=== PATIENT | female | born 1980 | race Caucasian/White ===

== ENCOUNTER 2021-02-22 00:56 | Observation (INO) | payer OTHER, SELFPAY ==
[2021-02-21] VITALS (13 sets, daily range): BP systolic 118–144; BP diastolic 72–96; PULSE 96–97; RESP 20; TEMP 36.9; O2SAT 96–97; BMI 29.7
--- NOTE | 2021-02-21 22:46 | ECG_ITS ---
APPROVED REPORT Exam: Resting ECG HR:69 bpm ECG Measurements Heart Rate 69 AXES AZ 148 P 35 QRSd 74 QRS 33 QT 366 T 41 QTc 392 Conclusion Normal sinus rhythm Possible Left atrial enlargement Borderline ECG Electronically signed by : Ankit Davies MD 02/22/2021 17:55:58
--- NOTE | 2021-02-21 22:55 | PC.NURSE ---
PT TO UNIT AT THIS TIME. PT C/O HEAVINESS IN HER CHEST, HEADACHE THAT IS CURRENTLY RESOLVED AND HAS BEEN MILD AND INTERMITTENT. SHE IS 8 DAYS POST- FROM A . REPORTS NO HX OF ELEVATED BP OR COMPLICATIONS FROM PREVIOUS PREGNANCIES. PT DENIES VISUAL DISTURBANCE OR TENDERNESS OF HER ABDOMEN. NO DIZZINESS. REPORTS A HX OF ANXIETY AND DEPRESSION WITH PANIC ATTACKS. SHE DOES STATE THIS THIS FEELS DIFFERENT THAN A PANIC ATTACK . PT ORIENTED TO STAFF, UNIT AND PLAN OF CARE. UA AND UDS OBTAINED.
[2021-02-21 23:38] LABS: Microscopic, Urine URINE MICROSCOPIC (MICROSCOPIC)
[2021-02-21 23:42] LABS: Basophils % 0.4 % (0.1-2.0); Eosinophils # 0.2 K/mm3 (0.0-0.4); Eosinophils % 1.8 % (0.1-12.0); Hematocrit 37.9 % (37.0-47.0); Hemoglobin 12.5 g/dL (12.2-16.2); Lymphocytes # 1.4 K/mm3 (0.7-4.5); Lymphocytes % 15.6 % (10-50); Mean Corpuscular HGB Conc 33.1 g/dL (31.8-35.4); Mean Corpuscular Hemoglobin 30.3 pg (27.0-31.2); Mean Corpuscular Volume 91.7 fl (81-99); Mean Platelet Volume 7.6 fl (7.4-10.4); Monocytes # 0.5 K/mm3 (0.1-1.0); Monocytes % 5.3 % (1.7-9.3); Neutrophils # 6.9 K/mm3 (1.8-7.8); Neutrophils % 76.9 % (37.0-80.0); Platelet Count 293 K/mm3 (142-424); Red Blood Count 4.13 M/mm3 (4.20-5.40); Red Cell Distribution Width 15.4 % (11.5-17.5)
[2021-02-21 23:47] LABS: Appearance,Urine CLEAR (Clear); Bilirubin,Urine Negative (Negative); Blood, Urine TRACE-I (Negative); Color,Urine YELLOW (Yellow); Glucose,Urine (UA) Negative (Negative); Ketones,Urine Negative (Negative); Leukocyte Esterase,Urine TRACE (Negative); Nitrate,Urine Negative (Negative); Protein,Urine Negative (Negative); Specific Gravity, Urine <= 1.005 (1.005-1.030); Urobilinogen,Urine 0.2 EU/dl (0.2)
[2021-02-21 23:53] LABS: D-Dimer 2.05 ug/mL (0.0-0.5)
[2021-02-21 23:58] LABS: Barbiturates Screen,Urine Negative ng/ml (<200)
[2021-02-21 23:59] LABS: Amphetamine/Metha Screen,Urine Negative ng/ml (<1000); Benzodiazepines Screen,Urine Negative ng/ml (<200)
[2021-02-22] VITALS (11 sets, daily range): BP systolic 125–149; BP diastolic 72–100; PULSE 60–70; RESP 18; TEMP 36.7–36.9; O2SAT 98–99
[2021-02-22] LABS: Cannabinoid Screen,Urine Negative ng/ml (<50)
[2021-02-22 00:01] LABS: Cocaine Screen,Urine Negative ng/ml (<300); Methadone Screen,Urine Negative ng/ml (<300)
[2021-02-22 00:02] LABS: Opiate Screen,Urine Negative ng/ml (<300)
[2021-02-22 00:03] LABS: Phencyclidine Screen,Urine Negative ng/ml (<25)
[2021-02-22 00:07] LABS: Activated Partial Thrombo Time 22.9 seconds (22.8-30.6); Fibrinogen 348 mg/dL (229.9-363.5); INR 0.93 (0.9-1.1); Prothrombin Time 10.6 seconds (10.1-12.5)
[2021-02-22 00:17] LABS: Bacteria,Urine Trace /lpf; RBC,Urine Occasional #/hpf (0-3); Squamous Epithelial Cell,Urine Occasional #/hpf (0-5)
[2021-02-22 00:23] LABS: Alanine Aminotransferase 99 U/L (12-78); Anion Gap 9.8 mEq/L (5-15); Aspartate Amino Transferase 106 U/L (14-36); Blood Urea Nitrogen 14 mg/dl (7-17); Calcium 8.9 mg/dl (8.4-10.2); Carbon Dioxide 25 mmol/L (22.0-30.0); Chloride 106 mmol/L (98-107); Creatinine Clearance Estimated 135 mL/min (50-200); Estimated Glomerular Filt Rate 94 ml/min (>60); GFR (African American) 113 ML/MIN (>60); Glucose 108 mg/dl (74-100); Potassium 3.8 mmoL/L (3.5-5.1); Sodium 137 mmol/L (136-145)
--- NOTE | 2021-02-22 00:55 | PC.NURSE ---
PT TO ROOM 275 WITH BELONGINGS. PT ORIENTED TO ROOM. CALL LIGHT IN REACH. PREI-PADS PROVIDED FOR POST- BLEEDING. PT CONTINUES TO REPORT HEAVINESS IN HER CHEST AND INCREASED ANXIETY. DENIES ABDOMINAL TENDERNESS, VISUAL DISTURBANCES OR HEADACHE AT THIS TIME.
[2021-02-22 02:10] LABS: Coronavirus 19, PCR Not Detected (NotDetected); Influenza A, PCR Not Detected (NotDetected); Influenza B, PCR Not Detected (NotDetected)
--- NOTE | 2021-02-22 07:10 | XR_ITS ---
PROCEDURE INFORMATION: Exam: XR Chest Exam date and time: 02/22/2021 7:10 AM Age: 40 years old Clinical indication: Pain; Chest pressure; Patient HX: x 1 week; Additional info: Chest heaviness TECHNIQUE: Imaging protocol: XR of the chest. Views: 2 views. COMPARISON: ABDPELW/O CT ABD PELVIS W/O CONTRAST 09/25/2015 8:29 AM FINDINGS: Lungs: No focal airspace disease. Pleural spaces: Unremarkable. No pleural effusion. No pneumothorax. Heart/Mediastinum: Cardiomediastinal silhouette is within normal limits. Bones/joints: Unremarkable. IMPRESSION: No acute cardiopulmonary abnormality.
[2021-02-22 08:07] LABS: Basophils % 0.4 % (0.1-2.0); Eosinophils # 0.1 K/mm3 (0.0-0.4); Eosinophils % 1.4 % (0.1-12.0); Hematocrit 38.8 % (37.0-47.0); Hemoglobin 12.6 g/dL (12.2-16.2); Lymphocytes # 1.5 K/mm3 (0.7-4.5); Lymphocytes % 17.5 % (10-50); Mean Corpuscular HGB Conc 32.4 g/dL (31.8-35.4); Mean Corpuscular Hemoglobin 29.8 pg (27.0-31.2); Mean Platelet Volume 7.4 fl (7.4-10.4); Monocytes # 0.5 K/mm3 (0.1-1.0); Monocytes % 5.8 % (1.7-9.3); Neutrophils # 6.6 K/mm3 (1.8-7.8); Neutrophils % 74.9 % (37.0-80.0); Platelet Count 268 K/mm3 (142-424); Red Blood Count 4.22 M/mm3 (4.20-5.40); Red Cell Distribution Width 15.4 % (11.5-17.5); White Blood Count 8.8 K/mm3 (4.8-10.8)
[2021-02-22 08:12] LABS: Chloride 107 mmol/L (98-107); Potassium 3.9 mmoL/L (3.5-5.1); Sodium 140 mmol/L (136-145)
[2021-02-22 08:15] LABS: Alanine Aminotransferase 94 U/L (12-78); Albumin Level 3.6 g/dl (3.5-5.0); Albumin/Globulin Ratio 1.3 (1.1-1.8); Alkaline Phosphatase 100 U/L (38-126); Anion Gap 10.9 mEq/L (5-15); Aspartate Amino Transferase 85 U/L (14-36); Bilirubin,Total 0.3 mg/dl (0.2-1.3); Blood Urea Nitrogen 13 mg/dl (7-17); Calcium 8.8 mg/dl (8.4-10.2); Carbon Dioxide 26 mmol/L (22.0-30.0); Creatinine Clearance Estimated 135 mL/min (50-200); Estimated Glomerular Filt Rate 94 ml/min (>60); GFR (African American) 113 ML/MIN (>60); Globulin 2.8 g/dL (1.3-3.2); Glucose 95 mg/dl (74-100); Total Protein,Serum 6.4 g/dl (6.3-8.2)
--- NOTE | 2021-02-22 10:02 | PC.NURSE ---
at bs to see pt.
--- NOTE | 2021-02-22 10:03 | PC.NURSE ---
Release of Information sheet faxed to [facility] to obtain Records.
--- NOTE | 2021-02-22 10:25 | PC.NURSE ---
Yesenia from ' office notified of need for consultation.
--- NOTE | 2021-02-22 12:35 | PC.NURSE ---
called unit r/t consultation. States that he will order a CTA. Understanding verbalized.
--- NOTE | 2021-02-22 12:48 | CT_ITS ---
PROCEDURE INFORMATION: Exam: CTA Chest With Contrast Exam date and time: 02/22/2021 12:48 PM Age: 40 years old Clinical indication: Abnormal findings; Patient HX: 1 week post , chest pressure, elevated d dimer; Additional info: Chest pressure, post-, elev. D-dimer TECHNIQUE: Imaging protocol: Computed tomographic angiography of the chest with contrast. 3D rendering (Not supervised by radiologist): MIP and/or 3D reconstructed images were created by the technologist. Radiation optimization: All CT scans at this facility use at least one of these dose optimization techniques: automated exposure control; mA and/or kV adjustment per patient size (includes targeted exams where dose is matched to clinical indication); or iterative reconstruction. Contrast material: ISOVUE 370; Contrast volume: 70 ml; Contrast route: INTRAVENOUS (IV); COMPARISON: CR XR CHEST 2V 02/22/2021 7:14 AM FINDINGS: Pulmonary arteries: 2.5 mm thick axials provided as well as reconstructed MIPS. These images demonstrate a small subsegmental pulmonary embolus is seen in the right lower lobe posteromedially. See image 71 of series 5 and image 51 of the coronal series. Aorta: Unremarkable. No aortic aneurysm. No aortic dissection. Lungs: There is a calcified pulmonary nodule in the right lower lobe posterior. Pleural spaces: Unremarkable. No pneumothorax. No pleural effusion. Heart: No evidence of right heart strain. Lymph nodes: Calcified mediastinal lymph nodes noted. Bones/joints: Unremarkable. No acute fracture. Soft tissues: Unremarkable. IMPRESSION: A tiny subsegmental pulmonary embolus is seen in the right lower lobe Case discussed with Dr. Kenney over the phone at 1:40 p.m. [place] time
--- NOTE | 2021-02-22 13:13 | HMH.HP ---
*Admission Date: 02/22/21 *Chief complaint: chest tightness *History of present illness: 40 yo presented to [facility] ED with complaint of tightness in chest. She is 1 week from vaginal delivery at [facility]. She reports that and delivery were both uncomplicated, and she was discharged home on PPD #1. Approximately 1 week , she had acute onset of discomfort in chest, which she described as feeling heavy. This discomfort seemed to radiate from chest up towards esophagus, but she was unable to state whether or not it was consistent with acid reflux. She was unable to describe the feeling in specific terms, only stating that it didn't feel right. She denied feeling pain in chest or shortness of breath, and was concerned that this might be a panic attack. Evaluation showed intermittent mild elevation of blood pressures 130-140/80-90 and mild elevation of liver function tests, with AST 106 and ALT 99. Labs were repeated this morning and both were trending down, with AST 85 and ALT 94. Blood pressures normal today. She denies any preeclampsia symptoms. She has a history of anxiety and discontinued lexapro when she became . No significant past medical history. 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 [facility] History I have reviewed the patient's past medical history: Yes *Have you ever received a pneumonia vaccine?: No *Have you received a flu vaccine this season?: Yes Other Surgeries: Yes: Dilation and Curettage, Other (oophorectomy). 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 : 6 Para: 4 A: 2 Review of Systems - Review of Systems Review of systems:: pertinent systems reviewed and negative unless documented below - *Cardiovascular Reports chest pain, Denies shortness of breath, Denies radiating jaw, neck or arm pain - *Respiratory Denies shortness of breath - *Gastrointestinal Denies abdominal pain - *Genitourinary Denies abnormal vaginal bleeding, Denies vaginal discharge - Psychiatric Reports anxiety Meds Home Medications Medication Instructions Recorded Confirmed Type Pnv No.95/Ferrous Fum/Folic AC 1 each PO DAILY 02/22/21 02/22/21 History [ Multivitamin Tablet] Allergies Allergy/AdvReac Type Severity Reaction Status Date / Time No Known Allergies Allergy Unverified 02/27/17 15:36 Exam Vital signs and Labs for Last 24 Hours: Temp Pulse Resp BP Pulse Ox 98.1 F 60 18 143/89 H 98 02/22/21 08:00 02/22/21 08:00 02/22/21 08:00 02/22/21 08:00 02/22/21 03:51 Laboratory Results - last 24 hr 02/21/21 22:50: Urine Color Yellow, Urine Appearance Clear, Urine pH 7.0, Ur Specific [place] <= 1.005, Urine Protein Negative, Urine Glucose (UA) Negative, Urine Ketones Negative, Urine Blood Trace-i, Urine Nitrate Negative, Urine Bilirubin Negative, Urine Urobilinogen 0.2, Ur Leukocyte Esterase Trace, Urine RBC Occasional, Urine WBC 3-5, Ur Squamous Epith Cells Occasional, Urine Bacteria Trace 02/21/21 22:50: Urine Opiates Screen Negative, Urine Methadone Screen Negative, Ur Barbituates Screen Negative, Ur Phencyclidine Scrn Negative, Ur Amphetamines Screen Negative, U Benzodiazepines Scrn Negative, Urine Cocaine Screen Negative, U Marijuana (THC) Screen Negative 02/21/21 23:15: WBC 9.0, RBC 4.13 L, Hgb 12.5, Hct 37.9, MCV 91.7, MCH 30.3, MCHC 33.1, RDW 15.4, Plt Count 293, MPV 7.6, Neut % (Auto) 76.9, Lymph % (Auto) 15.6, [place] % (Auto) 5.3, Eos % (Auto) 1.8, Baso % (Auto) 0.4, Neut # (Auto) 6.9, Lymph # (Auto) 1.4, [place] # (Auto) 0.5, Eos # (Auto) 0.2, Baso # (Auto) 0.0 02/21/21 23:15: PT 10.6, INR 0.93, APTT 22.9, Fibrinogen 348 02/21/21 23:15: D-Dimer 2.05 H, Sodium 13
--- NOTE | 2021-02-22 13:22 | PC.NURSE ---
Pt taken to Radiology for CT via w/c and Radiology staff.
--- NOTE | 2021-02-22 14:11 | PC.NURSE ---
Pt back to floor from Radiology.
--- NOTE | 2021-02-22 15:00 | PC.NURSE ---
Pt taken back to CT r/t test having to be redone d/t pt breathing during first one.
--- NOTE | 2021-02-22 15:53 | PC.NURSE ---
Pt taken to Radiology for repeat CT r/t her breathing during the initial one.
--- NOTE | 2021-02-22 16:13 | HMH.CONS ---
*Admission Date: 02/22/21 *Reason for consult:: Chest tightness *History of present illness: 40-year-old female who is 6 days presented to the hospital yesterday evening after onset of chest tightness at home with associated slight cough. Patient came to the hospital and was triaged to the OB floor. Patient had mild elevation of blood pressure and labs showed mild elevation of LFTs. After overnight observation medical consult has been ordered. Patient confirms the onset of chest tightness with slight cough. Since admission this complaint has resolved. She denies shortness of breath, fever, chills, pain with inspiration. She does endorse periankle edema over the weekend that has nearly resolved. She denies calf pain. She has no personal history of blood clots it is unaware of any family history. Work-up so far has included the aforementioned labs as well as EKG which showed sinus rhythm without any ischemic changes. [facility] History I have reviewed the patient's past medical history: Yes Medical History: Reports:: Anxiety *Have you ever received a pneumonia vaccine?: No *Have you received a flu vaccine this season?: Yes Other Surgeries: Yes: Dilation and Curettage, Other (oophorectomy). 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 Para: 4 A: 2 Review of Systems - Review of Systems Review of systems:: pertinent systems reviewed and negative unless documented below Meds Home Medications Medication Instructions Recorded Confirmed Type Pnv No.95/Ferrous Fum/Folic AC 1 each PO DAILY 02/22/21 02/22/21 History [ Multivitamin Tablet] Allergies Allergy/AdvReac Type Severity Reaction Status Date / Time No Known Allergies Allergy Unverified 02/27/17 15:36 Exam Vital signs and Labs for Last 24 Hours: Temp Pulse Resp BP Pulse Ox 98.1 F 60 18 143/89 H 98 02/22/21 08:00 02/22/21 08:00 02/22/21 08:00 02/22/21 08:00 02/22/21 03:51 Laboratory Results - last 24 hr 02/21/21 22:50: Urine Color Yellow, Urine Appearance Clear, Urine pH 7.0, Ur Specific [place] <= 1.005, Urine Protein Negative, Urine Glucose (UA) Negative, Urine Ketones Negative, Urine Blood Trace-i, Urine Nitrate Negative, Urine Bilirubin Negative, Urine Urobilinogen 0.2, Ur Leukocyte Esterase Trace, Urine RBC Occasional, Urine WBC 3-5, Ur Squamous Epith Cells Occasional, Urine Bacteria Trace 02/21/21 22:50: Urine Opiates Screen Negative, Urine Methadone Screen Negative, Ur Barbituates Screen Negative, Ur Phencyclidine Scrn Negative, Ur Amphetamines Screen Negative, U Benzodiazepines Scrn Negative, Urine Cocaine Screen Negative, U Marijuana (THC) Screen Negative 02/21/21 23:15: WBC 9.0, RBC 4.13 L, Hgb 12.5, Hct 37.9, MCV 91.7, MCH 30.3, MCHC 33.1, RDW 15.4, Plt Count 293, MPV 7.6, Neut % (Auto) 76.9, Lymph % (Auto) 15.6, [place] % (Auto) 5.3, Eos % (Auto) 1.8, Baso % (Auto) 0.4, Neut # (Auto) 6.9, Lymph # (Auto) 1.4, [place] # (Auto) 0.5, Eos # (Auto) 0.2, Baso # (Auto) 0.0 02/21/21 23:15: PT 10.6, INR 0.93, APTT 22.9, Fibrinogen 348 02/21/21 23:15: D-Dimer 2.05 H, Sodium 137, Potassium 3.8, Chloride 106, Carbon Dioxide 25, Anion Gap 9.8, BUN 14, Creatinine 0.70, Estimated Creat Clear 135, Estimated GFR 94, Est GFR ( Amer) 113, Glucose 108 H, Uric Acid 6.0, Calcium 8.9, AST 106 H, ALT 99 H 02/22/21 01:45: SARS-CoV-2 (PCR) Not detected, Influenza A Untype (PCR) Not detected, Influenza Type B (PCR) Not detected 02/22/21 07:52: WBC 8.8, RBC 4.22, Hgb 12.6, Hct 38.8, MCV 92.0, MCH 29.8, MCHC 32.4, RDW 15.4, Plt Count 268, MPV 7.4, Neut % (Auto) 74.9, Lymph % (Auto) 17.5, [place] % (Auto) 5.8, Eos % (Auto) 1.4, Baso % (Auto) 0.4, Neut # (Auto) 6.6, Lymph # (Auto) 1.5, [place] # (Auto) 0.5, Eos # (Auto) 0.1, Baso # (Auto) 0.0 02/22/21 07:52: Sodium 140, P
--- NOTE | 2021-02-22 17:45 | PC.NURSE ---
T/O received from for Lovenox 1.5mg/kg (to be dosed per pharmacy). R/V.
--- NOTE | 2021-02-22 17:50 | PC.NURSE ---
Horace Holbrook consulted for dosage. Phone order received for 150mg sq. Order repeated and verified.
--- NOTE | 2021-02-22 17:56 | P.PN_ITS ---
Internal Medicine - PN: Subj *Date: 02/22/21 *Time: 17:56 Interval history: per [facility] report: tiny subsegmental PE right lower quadrant discussed with patient's primary care provider, who would like to treat her with a dose of subcutaneous lovenox now (1.5mg/kg) and will f/u with her regarding outpatient anticoagulation tomorrow she will be discharged home today Exam Vital signs and Labs for Last 24 Hours: Temp Pulse Resp BP Pulse Ox 98.1 F 60 18 143/89 H 98 02/22/21 08:00 02/22/21 08:00 02/22/21 08:00 02/22/21 08:00 02/22/21 03:51 Laboratory Results - last 24 hr 02/21/21 22:50: Urine Color Yellow, Urine Appearance Clear, Urine pH 7.0, Ur Specific [place] <= 1.005, Urine Protein Negative, Urine Glucose (UA) Negative, Urine Ketones Negative, Urine Blood Trace-i, Urine Nitrate Negative, Urine Bilirubin Negative, Urine Urobilinogen 0.2, Ur Leukocyte Esterase Trace, Urine RBC Occasional, Urine WBC 3-5, Ur Squamous Epith Cells Occasional, Urine Bacteria Trace 02/21/21 22:50: Urine Opiates Screen Negative, Urine Methadone Screen Negative, Ur Barbituates Screen Negative, Ur Phencyclidine Scrn Negative, Ur Amphetamines Screen Negative, U Benzodiazepines Scrn Negative, Urine Cocaine Screen Negative, U Marijuana (THC) Screen Negative 02/21/21 23:15: WBC 9.0, RBC 4.13 L, Hgb 12.5, Hct 37.9, MCV 91.7, MCH 30.3, MCHC 33.1, RDW 15.4, Plt Count 293, MPV 7.6, Neut % (Auto) 76.9, Lymph % (Auto) 15.6, [place] % (Auto) 5.3, Eos % (Auto) 1.8, Baso % (Auto) 0.4, Neut # (Auto) 6.9, Lymph # (Auto) 1.4, [place] # (Auto) 0.5, Eos # (Auto) 0.2, Baso # (Auto) 0.0 02/21/21 23:15: PT 10.6, INR 0.93, APTT 22.9, Fibrinogen 348 02/21/21 23:15: D-Dimer 2.05 H, Sodium 137, Potassium 3.8, Chloride 106, Carbon Dioxide 25, Anion Gap 9.8, BUN 14, Creatinine 0.70, Estimated Creat Clear 135, Estimated GFR 94, Est GFR ( Amer) 113, Glucose 108 H, Uric Acid 6.0, Calcium 8.9, AST 106 H, ALT 99 H 02/22/21 01:45: SARS-CoV-2 (PCR) Not detected, Influenza A Untype (PCR) Not detected, Influenza Type B (PCR) Not detected 02/22/21 07:52: WBC 8.8, RBC 4.22, Hgb 12.6, Hct 38.8, MCV 92.0, MCH 29.8, MCHC 32.4, RDW 15.4, Plt Count 268, MPV 7.4, Neut % (Auto) 74.9, Lymph % (Auto) 17.5, [place] % (Auto) 5.8, Eos % (Auto) 1.4, Baso % (Auto) 0.4, Neut # (Auto) 6.6, Lymph # (Auto) 1.5, [place] # (Auto) 0.5, Eos # (Auto) 0.1, Baso # (Auto) 0.0 02/22/21 07:52: Sodium 140, Potassium 3.9, Chloride 107, Carbon Dioxide 26, Anion Gap 10.9, BUN 13, Creatinine 0.70, Estimated Creat Clear 135, Estimated GFR 94, Est GFR ( Amer) 113, Glucose 95, Calcium 8.8, Total Bilirubin 0.3, AST 85 H, ALT 94 H, Alkaline Phosphatase 100, Total Protein 6.4, Albumin 3.6, Globulin 2.8, Albumin/Globulin Ratio 1.3 I & O for Last 24 hours: Intake & Output 02/20/21 02/21/21 02/22/21 02/23/21 11:59 11:59 11:59 11:59 Weight 173 lb Assessment and Plan (1) Tightness in chest Status: Acute Category: Medical Code(s): R07.89 - Other chest pain (2) state Status: Acute Category: Medical Code(s): Z39.2 - Encounter for routine follow-up
--- NOTE | 2021-02-22 18:00 | PC.NURSE ---
notified of POC and discharge plans. Dosage recalculated and corrected per . Dosage should be 120mg sq and not 150mg sq. R/V. Horace Holbrook from pharmacy called and notified of dosage miscalculation. Verified understanding.
--- NOTE | 2021-02-22 18:00 | HMH.DCSUM ---
General - General Admission date:: 02/22/21 Discharge date: 02/22/21 HPI HPI: 40 yo presented to [facility] ED with complaint of tightness in chest. She is 1 week from vaginal delivery at [facility]. She reports that and delivery were both uncomplicated, and she was discharged home on PPD #1. Approximately 1 week , she had acute onset of discomfort in chest, which she described as feeling heavy. This discomfort seemed to radiate from chest up towards esophagus, but she was unable to state whether or not it was consistent with acid reflux. She was unable to describe the feeling in specific terms, only stating that it didn't feel right. She denied feeling pain in chest or shortness of breath, and was concerned that this might be a panic attack. Evaluation showed intermittent mild elevation of blood pressures 130-140/80-90 and mild elevation of liver function tests, with AST 106 and ALT 99. Labs were repeated this morning and both were trending down, with AST 85 and ALT 94. Blood pressures normal today. She denies any preeclampsia symptoms. She has a history of anxiety and discontinued lexapro when she became . No significant past medical history. 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 Hospital Course Hospital Course: patient was not in distress at any point during her hospitalization CTA was performed with finding of tiny subsegmental pulmonary embolus in RLL She will be discharged after dose of lovenox and will f/u with primary care physician regarding outpatient anticoagulation Objective Vital signs: Temp Pulse Resp BP Pulse Ox 98.1 F 60 18 143/89 H 98 02/22/21 08:00 02/22/21 08:00 02/22/21 08:00 02/22/21 08:00 02/22/21 03:51 Narrative: CONSTITUTIONAL: no acute distress HEENT: mucous membranes moist PULMONARY: breathing unlabored without audible wheezes CV: no tachycardia or visible JVD; normal LE peripheral pulses ABD: soft, NT/ND, no guarding : fundus firm below umbilicus SKIN: no visible rash or lesions EXT: no edema LEs NEURO: alert/oriented, no altered mental status PSYCH: appropriate mood and demeanor without visible anxiety/depression Results Labs on day of discharge: Labs from last 24 hours 02/22/21 02/22/2121 07:52 07:52 01:45 WBC 8.8 RBC 4.22 Hgb 12.6 Hct 38.8 MCV 92.0 MCH 29.8 MCHC 32.4 RDW 15.4 Plt Count 268 MPV 7.4 Neut % (Auto) 74.9 Lymph % (Auto) 17.5 [place] % (Auto) 5.8 Eos % (Auto) 1.4 Baso % (Auto) 0.4 Neut # (Auto) 6.6 Lymph # (Auto) 1.5 [place] # (Auto) 0.5 Eos # (Auto) 0.1 Baso # (Auto) 0.0 PT INR APTT Fibrinogen D-Dimer Sodium 140 Potassium 3.9 Chloride 107 Carbon Dioxide 26 Anion Gap 10.9 BUN 13 Creatinine 0.70 Estimated Creat Clear 135 Estimated GFR 94 Est GFR ( Amer) 113 Glucose 95 Uric Acid Calcium 8.8 Total Bilirubin 0.3 AST 85 H ALT 94 H Alkaline Phosphatase 100 Total Protein 6.4 Albumin 3.6 Globulin 2.8 Albumin/Globulin Ratio 1.3 Urine Color Urine Appearance Urine pH Ur Specific [place] Urine Protein Urine Glucose (UA) Urine Ketones Urine Blood Urine Nitrate Urine Bilirubin Urine Urobilinogen Ur Leukocyte Esterase Urine RBC Urine WBC Ur Squamous Epith Cells Urine Bacteria Urine Opiates Screen Urine Methadone Screen Ur Barbituates Screen Ur Phencyclidine Scrn Ur Amphetamines Screen U Benzodiazepines Scrn Urine Cocaine Screen U Marijuana (THC) Screen SARS-CoV-2 (PCR) Not detected Influenza A Untype (PCR) Not detected Influenza Type B (PCR) Not detected 02/21/21 02/21/21 02/21/21 23:15 23:15 23:15 WBC 9.0 RBC 4.13 L Hgb 12.5 Hct
--- NOTE | 2021-02-22 18:40 | PC.NURSE ---
Discharge instructions given to pt. Pt verbalizes understanding.
--- NOTE | 2021-02-22 18:40 | PC.NURSE ---
Lovenox 120mg sq given in rt upper arm
== END 2021-02-22 18:49 | disposition home or self-care (01) | DRG 776 ==
LOC: OBOUT 00:57 → OB 18:07
PROVIDERS: Admitting Provider Obstetrics & Gynecology; PCP Nurse Practitioner; Visit Provider Obstetrics & Gynecology
DX: O99.893 Other specified diseases and conditions complicating puerperium (principal); O88.23 Thromboembolism in the puerperium; O99.345 Other mental disorders complicating the puerperium; F41.9 Anxiety disorder, unspecified
CPT/HCPCS: 71046; 71275; 80048; 80053; 80305; 81001; 84450; 84460; 84550; 85025; 85378; 85384; 85610; 85730; 93005; C9803; G0378; Q9967; U0003; U0005

== ENCOUNTER → 2021-04-22 14:33 | Outpatient (CLI) | payer OTHER, SELFPAY ==
--- NOTE | 2021-04-22 14:40 | XR_ITS ---
FINAL REPORT CLINICAL HISTORY: CHEST PAIN,COVID 19 X 2 WKS AGO COMPARISON: February 22, 2021 FINDINGS: Two views of the chest were obtained. The heart size and pulmonary vascularity are within normal limits. The mediastinum is normal. No acute pulmonary abnormality is identified. There is no pneumothorax. The bony thorax is intact. IMPRESSION: No active cardiopulmonary disease. Reviewed, Interpreted and Dictated by Tom Baum III, MD Transcribed by Harmeet Juarez Authenticated by Tom Baum III, MD on 04/22/2021 03:43:[address] [facility]
== END ==
PROVIDERS: PCP Family Medicine; Visit Provider Nurse Practitioner Family
DX: R07.9 Chest pain, unspecified (principal); U07.1 COVID-19
CPT/HCPCS: 71046

== ENCOUNTER → 2021-05-03 13:57 | Outpatient (CLI) | payer OTHER, SELFPAY ==
--- NOTE | 2021-05-03 14:04 | US_ITS ---
FINAL REPORT CLINICAL HISTORY: ABN THYROID TEST FINDINGS: Sonographic images of the thyroid were obtained. The right lobe of the thyroid measures 1.4 x 4.4 x 2.0 cm. The left lobe of the thyroid measures 1.2 x 4.2 x 1.9 cm. There are several hypoechoic nodules in both lobes of the thyroid which appears solid and ovoid measuring up to 4 mm in greatest dimension. Findings are consistent with TI-RADS Category 4. IMPRESSION: Tiny scattered nodules in both lobes of the thyroid as above. No follow-up is required. Reviewed, Interpreted and Dictated by Haresh Herrera MD Transcribed by Blanca Knutson Authenticated by Haresh Herrera MD on 05/03/2021 04:49:22 PM [facility]
== END ==
PROVIDERS: PCP Family Medicine; Visit Provider Nurse Practitioner Family
DX: R22.1 Localized swelling, mass and lump, neck (principal); R79.89 Other specified abnormal findings of blood chemistry
CPT/HCPCS: 76536

== ENCOUNTER 2023-05-06 22:41 | Emergency (ER) | payer OTHER, SELFPAY ==
--- NOTE | 2023-05-06 22:42 | ECG_ITS ---
APPROVED REPORT Exam: Resting ECG HR:104 bpm ECG Measurements Heart Rate 104 AXES VT 146 P 35 QRSd 86 QRS 52 QT 331 T 9 QTc 391 Conclusion SINUS TACHYCARDIA ABNORMAL RHYTHM ECG UNCONFIRMED REPORT Electronically signed by : Ankit Davies MD 05/07/2023 20:00:23
--- NOTE | 2023-05-06 22:43 | PC.NURSE ---
ekg given to md ainsley
[2023-05-06 22:46] VITALS: BP 133/82; PULSE 103; PULSE 98; RESP 20; TEMP 36.8; O2SAT 98; O2SAT 99; BMI 30.9
--- NOTE | 2023-05-06 22:49 | XR_ITS ---
PROCEDURE INFORMATION: Exam: XR Chest Exam date and time: 05/06/2023 10:53 PM Age: 42 years old Clinical indication: Pain; Chest pressure; Additional info: Cp TECHNIQUE: Imaging protocol: Radiologic exam of the chest. Views: 2 views. COMPARISON: CR XR CHEST 2V 04/22/2021 2:48 PM FINDINGS: Lungs: Unremarkable. No consolidation. Pleural spaces: Unremarkable. No pleural effusion. No pneumothorax. Heart/Mediastinum: Unremarkable. No cardiomegaly. Bones/joints: Unremarkable. IMPRESSION: No acute findings.
--- NOTE | 2023-05-06 22:51 | [facility].EDCP ---
Discharge Plan Disposition Patient Disposition: Home, Self-Care Condition: Good Prescriptions Prescriptions: No Action PNV cmb#95-ferrous fumarate-FA 1 EACH tablet 1 each PO DAILY citalopram 10 MG tablet 10 mg PO DAILY 0RF Referrals Follow up/Referrals: Provider,MD Akiko [Primary Care Provider] - See instructions Activity Restrictions/Add. Instructions Additional Instructions/Restrictions: You were evaluated in the ER. You are appropriate for discharge at this time. Please make an appointment with your primary care physician for reevaluation as soon as possible to discuss anxiety and your visit to the ER. Return to the ER with any new, worsening, or otherwise concerning symptoms. Clinical Impressions Clinical Impression: Chest pain Discharge ED Provider: Ned Harrell HPI <Ned Harrell MD - Last Filed: 05/06/23 23:00> General Chief Complaint: Chest Pain Stated Complaint: chest pressure Time Seen by Provider: 05/06/23 22:46 History of Present Illness HPI narrative: Patient is a 42-year-old female past medical history of anxiety presents emergency department for evaluation of chest pressure. Onset was acute, approximately an hour prior to arrival. Patient has sick contacts at home with influenza and has had intermittent pain in her shoulder blades. No abdominal pain, last menstrual period approximately the 10th of this month. No other acute complaints at this time. Related Data Home Medications Medication Instructions Recorded Confirmed vit no.95-ferrous 1 each PO DAILY Supplement 02/22/21 02/22/21 fumarate 28 mg-folic acid 800 mcg tablet Previous Rx's Medication Instructions Recorded citalopram 10 mg tablet 10 mg PO DAILY 02/22/21 Allergies Allergy/AdvReac Type Severity Reaction Status Date / Time No Known Allergies Allergy Unverified 02/27/17 15:36 PFSH <Ned Harrell MD - Last Filed: 05/06/23 23:00> PFS Disclaimer: The information contained in this section may have been updated after the patient was seen, as this information can be updated by other users. Social History Smoking Status: Current every day smoker alcohol intake: never substance use type: denies use current occupational status: unemployed Travel in the last 8 weeks: None <Ned Harrell MD - Last Filed: 05/06/23 23:00> ROS Obtained: Yes Systems reviewed as appropriate & no additional complaints except as documented Physical Exam <Ned Harrell MD - Last Filed: 05/06/23 23:00> General General appearance: in no apparent distress and anxious Head Head exam: atraumatic and normocephalic Eye Eye exam: Present PERRL ENT ENT exam: Present mucous membranes moist Neck Neck exam: Present normal inspection Chest Chest inspection: Present normal inspection and symmetric chest wall rise Respiratory Respiratory exam: Present normal lung sounds bilaterally; Absent respiratory distress Cardiovascular Cardiovascular exam: Present normal rhythm and tachycardia Abdominal Exam Abdominal exam: Present soft; Absent tenderness Extremities Exam Extremities exam: Present normal inspection Neurological Exam Neurological exam: Present alert Psychiatric Psychiatric exam: Present normal affect Skin Skin exam: Present warm and dry HEART Score <Ned Harrell MD - Last Filed: 05/06/23 23:00> HEART Score HEART Score assessment performed?: Yes History (anamnesis): Moderately suspicious ECG: Normal Age: <45 years Risk factors: No known risk factors Troponin: </= normal limit HEART Score: 1 <Cj Hale MD - Last Filed: 05/07/23 01:30> HEART Score HEART Score: 1 Critical Care <Ned Harrell MD - Last Filed: 05/06/23 23:00> Critical Care Time Critical Care Time: No Medical Decision Making <Ned Harrell MD - Last Filed: 05/06/23 23:00> [place] Inquiry Pt receiving controlled substance: No Vital Signs Vital Signs: 05/06/23 22:46 05/06/23 22:46 05/06/23 23:13 Temperature 98.2 F Temperature Source Oral Pulse Rate 98 H 94 H Pulse Rate [Right Radial] 103 H Respiratory Rate 20 12 Blood Pressure 133/82 124/79 Blood Pressure [Right Arm] 133/82 Blood Pressure Mean [Right Arm] 99 Blood Pressure Source Blood Pressure Source [Right Arm] Automatic Cuff Blood Pressure Position Blood Pressure Position [Right Arm] Sitting 02 Sat by Pulse Oximetry 98 99 98 Oxygen Delivery Method Room Air 05/06/23 23:40 Temperature 98.2 F Temperature Source Oral Pulse Rate 89 Pulse Rate [Right Radial] Respiratory Rate 17 Blood Pressure 112/65 Blood Pressure [Right Arm] Blood Pressure Mean [Right Arm] Blood Pressure Source Automatic Cuff Blood Pressure Source [Right Arm] Blood Pressure Position Sitting Blood Pressure Position [Right Arm] 02 Sat by Pulse Oximetry Oxygen Delivery Method Room Air Lab Data Labs: Lab Results 05/06/23 22:43: WBC 12.7 H, RBC 4.35, Hgb 14.6, Hct 40.8, MCV 93.8, MCH 33.5 H, MCHC 35.7 H, RDW 13.5, Plt Count 243, MPV 8.4, Neut % (Auto) 69.8, Lymph % (Auto) 23.1, [place] % (Auto) 5.3, Eos % (Auto) 1.2, Baso % (Auto) 0.4, Neut # (Auto) 8.9 H, Lymph # (Auto) 2.9, [place] # (Auto) 0.7, Eos # (Auto) 0.2, Baso # (Auto) 0.1, D-Dimer 0.43, Sodium 140, Potassium 3.9, Chloride 107, Carbon Dioxide 25, Anion Gap 11.9, BUN 14, Creatinine 0.80, Estimated Creat Clear 120, Estimated GFR 79, Est GFR ( Amer) 96, Glucose 94, Calcium 9.2, Total Bilirubin 0.8, AST 39 H, ALT 30, Alkaline Phosphatase 55, Troponin I < 0.01, Total Protein 7.8, Albumin 4.8, Globulin 3.0, Albumin/Globulin Ratio 1.6, HCG, Quant < 2 05/06/23 23:12: SARS-CoV-2 (PCR) Not detected, Influenza A Untype (PCR) Not detected, Influenza Type B (PCR) Not detected 05/07/23 01:02: Troponin I < 0.01 05/06/23 22:43 05/06/23 22:43 Response Orders (Tests/Meds): ED MEDICATIONS Discontinued Medications Generic Name Dose Route Start Last Admin Trade Name Ottoniel PRN Reason Stop Dose Admin Acetaminophen 1,000 mg 05/06/23 22:49 05/06/23 22:56 Acetaminophen 500mg Tab PO 05/06/23 22:50 1,000 mg ONCE ONE Administration Aspirin 324 mg 05/06/23 22:49 05/06/23 22:56 Aspirin 81mg Chewable Tablet PO 05/06/23 22:50 324 mg ONCE ONE Administration Hydroxyzine Pamoate 25 mg 05/06/23 22:49 05/06/23 22:56 Hydroxyzine Pamoate 25mg Capsule PO 05/06/23 22:50 25 mg ONCE ONE Administration Lactated Ringer's 1,000 mls @ 999 mls/hr 05/06/23 22:49 05/06/23 22:56 Lactated Ringer's 1000 Ml Bag IV 05/06/23 23:49 999 mls/hr .Q1H1M ONE Administration ORDERS Category Date Time Status CXR 2 view (NOT portable) [XR chest 2V] Stat Exams 05/06/23 22:49 Completed CBC w/Auto Diff [Complete Blood Count Auto Diff] Stat Lab 05/06/23 22:43 Completed CMP [Comprehensive Metabolic Panel] Stat Lab 05/06/23 22:43 Completed D-Dimer Stat Lab 05/06/23 22:43 Completed HCG,Quantitative Stat Lab 05/06/23 22:43 Completed Rapid PCR Covid and Flu A/B Stat Lab 05/06/23 23:12 Completed Troponin I Q3H Lab 05/07/23 01:02 Completed Troponin I Q3H Lab 05/07/23 05:30 Ordered Troponin I Stat Lab 05/06/23 22:43 Completed ECG initial [place] Routine Y 05/06/23 22:42 Completed ECG Data Tracing #1: ECG Narrative: Independently interpreted by me, rate is 104, rhythm is regular, axis is normal, no ST elevation in anatomical contiguous leads. MDM Narrative Medical Decision Narrative: In summary patient is a 6-year-old female past medical history described above who presents emergency department for evaluation of chest pressure in the setting of influenza contacts. Patient is hemodynamically stable nontoxic-appearing upon arrival, afebrile, sinus tachycardia. Differential diagnosis includes viral syndrome, ACS, pulmonary embolism, among others. It is felt that patient is a low risk for aortic dissection and will undergo screening with chest x-ray and D-dimer. Initial inventions include Tylenol, aspirin, hydroxyzine, crystalloid bolus. Workup and repeat evaluation was largely pending at time of transition of care to the oncoming physician, Dr. Hale. CHANGE HEART IF TROP BUMPED <Cj Hale MD - Last Filed: 05/07/23 01:30> Vital Signs Vital Signs: 05/06/23 22:46 05/06/23 22:46 05/06/23 23:13 Temperature 98.2 F Temperature Source Oral Pulse Rate 98 H 94 H Pulse Rate [Right Radial] 103 H Respiratory Rate 20 12 Blood Pressure 133/82 124/79 Blood Pressure [Right Arm] 133/82 Blood Pressure Mean [Right Arm] 99 Blood Pressure Source Blood Pressure Source [Right Arm] Automatic Cuff Blood Pressure Position Blood Pressure Position [Right Arm] Sitting 02 Sat by Pulse Oximetry 98 99 98 Oxygen Delivery Method Room Air 05/06/23 23:40 Temperature 98.2 F Temperature Source Oral Pulse Rate 89 Pulse Rate [Right Radial] Respiratory Rate 17 Blood Pressure 112/65 Blood Pressure [Right Arm] Blood Pressure Mean [Right Arm] Blood Pressure Source Automatic Cuff Blood Pressure Source [Right Arm] Blood Pressure Position Sitting Blood Pressure Position [Right Arm] 02 Sat by Pulse Oximetry Oxygen Delivery Method Room Air Lab Data Labs: Lab Results 05/06/23 22:43: WBC 12.7 H, RBC 4.35, Hgb 14.6, Hct 40.8, MCV 93.8, MCH 33.5 H, MCHC 35.7 H, RDW 13.5, Plt Count 243, MPV 8.4, Neut % (Auto) 69.8, Lymph % (Auto) 23.1, [place] % (Auto) 5.3, Eos % (Auto) 1.2, Baso % (Auto) 0.4, Neut # (Auto) 8.9 H, Lymph # (Auto) 2.9, [place] # (Auto) 0.7, Eos # (Auto) 0.2, Baso # (Auto) 0.1, D-Dimer 0.43, Sodium 140, Potassium 3.9, Chloride 107, Carbon Dioxide 25, Anion Gap 11.9, BUN 14, Creatinine 0.80, Estimated Creat Clear 120, Estimated GFR 79, Est GFR ( Amer) 96, Glucose 94, Calcium 9.2, Total Bilirubin 0.8, AST 39 H, ALT 30, Alkaline Phosphatase 55, Troponin I < 0.01, Total Protein 7.8, Albumin 4.8, Globulin 3.0, Albumin/Globulin Ratio 1.6, HCG, Quant < 2 05/06/23 23:12: SARS-CoV-2 (PCR) Not detected, Influenza A Untype (PCR) Not detected, Influenza Type B (PCR) Not detected 05/07/23 01:02: Troponin I < 0.01 Response Orders (Tests/Meds): ED MEDICATIONS Discontinued Medications Generic Name Dose Route Start Last Admin Trade Name Freq PRN Reason Stop Dose Admin Acetaminophen 1,000 mg 05/06/23 22:49 05/06/23 22:56 Acetaminophen 500mg Tab PO 05/06/23 22:50 1,000 mg ONCE ONE Administration Aspirin 324 mg 05/06/23 22:49 05/06/23 22:56 Aspirin 81mg Chewable Tablet PO 05/06/23 22:50 324 mg ONCE ONE Administration Hydroxyzine Pamoate 25 mg 05/06/23 22:49 05/06/23 22:56 Hydroxyzine Pamoate 25mg Capsule PO 05/06/23 22:50 25 mg ONCE ONE Administration Lactated Ringer's 1,000 mls @ 999 mls/hr 05/06/23 22:49 05/06/23 22:56 Lactated Ringer's 1000 Ml Bag IV 05/06/23 23:49 999 mls/hr .Q1H1M ONE Administration ORDERS Category Date Time Status CXR 2 view (NOT portable) [XR chest 2V] Stat Exams 05/06/23 22:49 Completed CBC w/Auto Diff [Complete Blood Count Auto Diff] Stat Lab 05/06/23 22:43 Completed CMP [Comprehensive Metabolic Panel] Stat Lab 05/06/23 22:43 Completed D-Dimer Stat Lab 05/06/23 22:43 Completed HCG,Quantitative Stat Lab 05/06/23 22:43 Completed Rapid PCR Covid and Flu A/B Stat Lab 05/06/23 23:12 Completed Troponin I Q3H Lab 05/07/23 01:02 Completed Troponin I Q3H Lab 05/07/23 05:30 Ordered Troponin I Stat Lab 05/06/23 22:43 Completed ECG initial [place] Routine Y 05/06/23 22:42 Completed MDM Narrative Medical Decision Narrative: In summary patient is a 6-year-old female past medical history described above who presents emergency department for evaluation of chest pressure in the setting of influenza contacts. Patient is hemodynamically stable nontoxic-appearing upon arrival, afebrile, sinus tachycardia. Differential diagnosis includes viral syndrome, ACS, pulmonary embolism, among others. It is felt that patient is a low risk for aortic dissection and will undergo screening with chest x-ray and D-dimer. Initial inventions include Tylenol, aspirin, hydroxyzine, crystalloid bolus. Workup and repeat evaluation was largely pending at time of transition of care to the oncoming physician, Dr. Hale. Hale: Upon my assumption of care patient is stable and resting comfortably. I have reviewed the workup ordered by the primary provider and agree with his plan at this time. I personally interpreted chest x-ray which does not demonstrate any mediastinal widening or lobar infiltrate. See radiology read for final interpretation. Labs are reviewed and demonstrate mild leukocytosis, no anemia, D-dimer normal at 0.43, per ADD?RS score, patient does not require further workup due to extremely low risk of aortic dissection and negative D-dimer. This also is reassuring against PE. There are no significant electrolyte abnormalities, no findings of kidney dysfunction, troponin less than 0.01, due to the onset timing of symptoms, patient does require serial troponins. I placed the patient in ED observation for serial troponins to rule out evolving SD and hopefully preclude unnecessary admission. Patient was placed in ED observation at 12:10 AM. Patient was on the environmental monitoring technician and reevaluated frequently while awaiting test results. She was stable on all reevaluations and her vitals were stable throughout. Repeat troponin shows the second troponin to be normal as well, no significant delta. I feel the patient is appropriate to be discharged home at this time and follow-up with her PCP. She states her symptoms are significantly improved after having received the medications that were administered by the primary provider. No prescriptions are necessary at this time. Patient was given instructions on symptomatic management, follow up instructions, and return precautions for the emergency department. Patient indicated understanding and was discharged in stable condition. I had [id number] discussion with the patient and providing discharge instructions. Total time involved discharging the patient was less than 30 minutes. Total time in ED observation was 1 hour 18 minutes
[2023-05-06] MEDS: ACETAMINOPHEN 500MG TAB 1000 MG PO (22:56)
[2023-05-06] MEDS: hydrOXYzine pamoate 25MG CAPSULE 25 MG PO (22:56)
[2023-05-06] MEDS: ASPIRIN 81MG CHEWABLE TABLET 324 MG PO (22:56)
[2023-05-06] MEDS: LACTATED RINGERS 1000ML 1,000 ML 999 ML IV (22:56)
[2023-05-06 23:04] LABS: Basophils # 0.1 K/mm3 (0-0.2); Basophils % 0.4 % (0.1-2.0); Eosinophils # 0.2 K/mm3 (0.0-0.4); Eosinophils % 1.2 % (0.1-12.0); Hematocrit 40.8 % (37.0-47.0); Hemoglobin 14.6 g/dL (12.2-16.2); Lymphocytes # 2.9 K/mm3 (0.7-4.5); Lymphocytes % 23.1 % (10-50); Mean Corpuscular HGB Conc 35.7 g/dL (31.8-35.4); Mean Corpuscular Hemoglobin 33.5 pg (27.0-31.2); Mean Corpuscular Volume 93.8 fl (81-99); Mean Platelet Volume 8.4 fl (7.4-10.4); Monocytes # 0.7 K/mm3 (0.1-1.0); Monocytes % 5.3 % (1.7-9.3); Neutrophils # 8.9 K/mm3 (1.8-7.8); Neutrophils % 69.8 % (37.0-80.0); Platelet Count 243 K/mm3 (142-424); Red Blood Count 4.35 M/mm3 (4.20-5.40); Red Cell Distribution Width 13.5 % (11.5-17.5); White Blood Count 12.7 K/mm3 (4.8-10.8)
[2023-05-06 23:08] LABS: Alanine Aminotransferase 30 U/L (12-78); Albumin Level 4.8 g/dl (3.5-5.0); Albumin/Globulin Ratio 1.6 (1.1-1.8); Alkaline Phosphatase 55 U/L (38-126); Anion Gap 11.9 mEq/L (5-15); Aspartate Amino Transferase 39 U/L (14-36); Bilirubin,Total 0.8 mg/dl (0.2-1.3); Blood Urea Nitrogen 14 mg/dl (7-17); Calcium 9.2 mg/dl (8.4-10.2); Carbon Dioxide 25 mmol/L (22.0-30.0); Chloride 107 mmol/L (98-107); Creatinine Clearance Estimated 120 mL/min (50-200); Estimated Glomerular Filt Rate 79 ml/min (>60); GFR (African American) 96 ML/MIN (>60); Glucose 94 mg/dl (74-100); Potassium 3.9 mmoL/L (3.5-5.1); Sodium 140 mmol/L (136-145); Total Protein,Serum 7.8 g/dl (6.3-8.2)
[2023-05-06 23:13] VITALS: BP 124/79; PULSE 94; RESP 12; O2SAT 98
[2023-05-06 23:14] LABS: D-Dimer 0.43 ug/mL (0.0-0.5)
--- NOTE | 2023-05-06 23:14 | PC.NURSE ---
Pt back to room from X Ray. Covid/Flu swab sent at this time.
[2023-05-06 23:17] LABS: Coronavirus 19, PCR Not Detected (NotDetected); Influenza A, PCR Not Detected (NotDetected); Influenza B, PCR Not Detected (NotDetected)
[2023-05-06 23:40] VITALS: BP 104/69; PULSE 78; RESP 17; TEMP 36.8; O2SAT 97
[2023-05-06 23:52] LABS: Troponin I < 0.01 ng/ml (0.00-0.034)
[2023-05-06 23:53] LABS: HCG,Quantitative < 2 mIU/ml (0-5.42)
--- NOTE | 2023-05-06 23:53 | PC.NURSE ---
Patient assisted to bathroom.
--- NOTE | 2023-05-07 00:16 | PC.NURSE ---
Rounded on pt at this time. Pt given warm blanket. Pt denies chest pain at this time and states she feels much better.
--- NOTE | 2023-05-07 01:02 | PC.NURSE ---
2nd troponin sent at this time per MD Hale
[2023-05-07 01:27] LABS: Troponin I < 0.01 ng/ml (0.00-0.034)
== END 2023-05-07 01:34 | disposition home or self-care (01) ==
PROVIDERS: Emergency Medicine; Emergency Provider Emergency Medicine
DX: R07.9 Chest pain, unspecified (principal); M54.6 Pain in thoracic spine; F17.200 Nicotine dependence, unspecified, uncomplicated
CPT/HCPCS: 71046; 80053; 84484; 84702; 85025; 85378; 87636; 93005; 96360; 99285

== ENCOUNTER 2023-06-26 20:24 | Emergency (ER) | payer OTHER, SELFPAY ==
--- NOTE | 2023-06-26 20:24 | ECG_ITS ---
APPROVED REPORT Exam: Resting ECG HR:102 bpm ECG Measurements Heart Rate 102 AXES ME 141 P 32 QRSd 90 QRS 62 QT 331 T 23 QTc 390 Conclusion SINUS TACHYCARDIA LOW QRS VOLTAGE IN PRECORDIAL LEADS [QRS DEFLECTION < 1.0 mV IN CHEST LEADS] NONSPECIFIC T-WAVE ABNORMALITY ABNORMAL RHYTHM ECG UNCONFIRMED REPORT Electronically signed by : YAHIR BEST, 06/27/2023 06:50:27
[2023-06-26 20:25] VITALS: BP 132/86; PULSE 109; RESP 22; TEMP 36.6; O2SAT 98
--- NOTE | 2023-06-26 20:32 | [facility].EDCP ---
Discharge Plan Disposition Patient Disposition: Home, Self-Care Condition: Good Prescriptions Prescriptions: New pantoprazole [Protonix] 40 mg tablet,delayed release (DR/EC) 40 mg PO HS 28 Days Qty: 28 0RF No Action PNV cmb#95-ferrous fumarate-FA 1 EACH tablet 1 each PO DAILY citalopram 10 MG tablet 10 mg PO DAILY 0RF Referrals Follow up/Referrals: Ankit Basilio MD [Referring] - See instructions Activity Restrictions/Add. Instructions Additional Instructions/Restrictions: Please take medication as prescribed. Please follow-up closely with your primary care provider. I made a referral for you to gastroenterology. Please follow-up for any worsening change in your symptoms with your PCP or return to ER Clinical Impressions Clinical Impression: Acute chest pain Discharge ED Provider: Jaron Edwards HPI <BENITO Salguero - Last Filed: 06/26/23 22:02> General Chief Complaint: Chest Pain Stated Complaint: Chest pain Time Seen by Provider: 06/26/23 20:32 History of Present Illness HPI narrative: Patient presents for a 24-hour history of substernal chest pain. Patient states that pain began last night and has been waxing and waning in intensity but has not completely gone away at all and is currently 7 out of 10 on arrival. Patient reports there is no relieving or aggravating factors and is not made worse or better with food. She denies fever chills hemoptysis hematochezia melena does report some nausea but no vomiting and diarrhea. Patient last bowel movement was today. Related Data Home Medications Medication Instructions Recorded Confirmed vit no.95-ferrous 1 each PO DAILY Supplement 02/22/21 02/22/21 fumarate 28 mg-folic acid 800 mcg tablet Previous Rx's Medication Instructions Recorded citalopram 10 mg tablet 10 mg PO DAILY 02/22/21 pantoprazole 40 mg tablet,delayed 40 mg PO HS 4 weeks #28 tabs 06/26/23 release (Protonix) Allergies Allergy/AdvReac Type Severity Reaction Status Date / Time No Known Allergies Allergy Unverified 02/27/17 15:36 PFS <BENITO Salguero - Last Filed: 06/26/23 22:02> [facility] Disclaimer: The information contained in this section may have been updated after the patient was seen, as this information can be updated by other users. Social History Smoking Status: Current every day smoker alcohol intake: never substance use type: denies use current occupational status: unemployed Travel in the last 8 weeks: None <BENITO Salguero - Last Filed: 06/26/23 22:02> ROS Obtained: Yes Systems reviewed as appropriate & no additional complaints except as documented Physical Exam <BENITO Salguero - Last Filed: 06/26/23 22:02> General General appearance: alert and in no apparent distress Head Head exam: atraumatic and normal inspection Eye Eye exam: Present normal appearance, PERRL and EOMI ENT ENT exam: Present normal exam, normal oropharynx and mucous membranes moist Neck Neck exam: Present normal inspection, full ROM and trachea midline; Absent lymphadenopathy Chest Chest inspection: Present normal inspection and symmetric chest wall rise Respiratory Respiratory exam: Present normal lung sounds bilaterally; Absent respiratory distress or accessory muscle use Cardiovascular Cardiovascular exam: Present regular rate, normal rhythm, normal heart sounds, +S1 and +S2 Abdominal Exam Abdominal exam: Present soft and normal bowel sounds; Absent tenderness, guarding or rebound Extremities Exam Extremities exam: Present normal inspection and full ROM Back Exam Back exam: Present normal inspection and full ROM; Absent tenderness Neurological Exam Neurological exam: Present alert, oriented X3 and CN II-XII intact Psychiatric Psychiatric exam: Present normal affect and normal mood Skin Skin exam: Present warm, dry and normal color Lymphatic Lymphatic Findings: no adenopathy HEART Score <BENITO Salguero - Last Filed: 06/26/23 22:02> HEART Score HEART Score assessment performed?: No History (anamnesis): Slightly suspicious ECG: Normal Age: <45 years Risk factors: 1-2 risk factors Critical Care <BENITO Salguero - Last Filed: 06/26/23 22:02> Critical Care Time Critical Care Time: No Medical Decision Making <BENITO Salguero Last Filed: 06/26/23 22:02> Medical Records Medical records reviewed: Yes I reviewed the patient's medical records. [place] Inquiry Pt receiving controlled substance: No Vital Signs Vital Signs: 06/26/23 20:25 06/26/23 20:38 06/26/23 22:05 Temperature 97.8 F 98.0 F Temperature Source Oral Pulse Rate 109 H 84 Pulse Rate [Right Radial] 109 H Respiratory Rate 22 20 Blood Pressure 100/70 L Blood Pressure [Right Arm] 132/86 Blood Pressure Mean [Right Arm] 101 02 Sat by Pulse Oximetry 98 Oxygen Delivery Method Room Air Room Air Lab Data Lab results reviewed: Yes I reviewed the patient's lab results. Labs: Lab Results 06/26/23 20:29: WBC 8.3, RBC 4.22, Hgb 13.0, Hct 38.9, MCV 92.1, MCH 30.7, MCHC 33.4, RDW 13.5, Plt Count 199, MPV 7.8, Neut % (Auto) 67.8, Lymph % (Auto) 24.8, [place] % (Auto) 6.4, Eos % (Auto) 0.2, Baso % (Auto) 0.8, Neut # (Auto) 5.6, Lymph # (Auto) 2.1, [place] # (Auto) 0.5, Eos # (Auto) 0.0, Baso # (Auto) 0.1, PT 11.0, INR 1.02, D-Dimer 0.69 H, Sodium 141, Potassium 3.6, Chloride 107, Carbon Dioxide 28, Anion Gap 9.6, BUN 14, Creatinine 0.80, Estimated Creat Clear 116, Estimated GFR 79, Est GFR ( Amer) 96, Glucose 102 H, Calcium 9.6, Magnesium 1.9, Total Bilirubin 1.2, AST 35, ALT 39, Alkaline Phosphatase 66, Troponin I < 0.01, Total Protein 7.3, Albumin 4.4, Globulin 2.9, Albumin/Globulin Ratio 1.5, Lipase 90, TSH 0.69, Serum HCG, Qual Negative 06/26/23 21:14: SARS-CoV-2 (PCR) Not detected, Influenza A Untype (PCR) Not detected, Influenza Type B (PCR) Not detected 06/26/23 21:44: Urine Color Yellow, Urine Appearance Clear, Urine pH 7.0, Ur Specific [place] <= 1.005, Urine Protein Negative, Urine Glucose (UA) Negative, Urine Ketones 1+, Urine Blood 1+, Urine Nitrate Negative, Urine Bilirubin Negative, Urine Urobilinogen 0.2, Ur Leukocyte Esterase Negative, Urine RBC Occasional, Urine WBC Occasional, Ur Squamous Epith Cells 3-5, Urine Bacteria None 06/26/23 20:29 06/26/23 20:29 Response Orders (Tests/Meds): ED MEDICATIONS Discontinued Medications Generic Name Dose Route Start Last Admin Trade Name Freq PRN Reason Stop Dose Admin Acetaminophen 1,000 mg 06/26/23 20:34 06/26/23 21:03 Acetaminophen 1,000mg/100ml Vial IV 06/26/23 20:35 1,000 mg ONCE ONE Administration Belladonna Alkaloids 60 ml 06/26/23 20:34 06/26/23 21:03 Belladonna Alkaloids 60 Ml Ml PO 06/26/23 20:35 60 ml ONCE ONE Administration Iopamidol 70 ml 06/26/23 21:32 06/26/23 21:35 Iopamidol-370 (76%);100ml Bottle IV 06/26/23 21:33 70 ml ONCE ONE Administration Ketorolac Tromethamine 15 mg 06/26/23 20:34 06/26/23 21:03 Ketorolac 30mg/Ml Vial IV 06/26/23 20:35 15 mg ONCE ONE Administration Lorazepam 0.5 mg 06/26/23 20:34 06/26/23 21:03 Lorazepam 2mg/Ml Vial IV 06/26/23 20:35 0.5 mg ONCE ONE Administration Sodium Chloride 10 ml 06/26/23 20:34 Sodium Chloride 0.9% 10ml Vial IV 07/26/23 20:33 NEEDED PRN to Dilute Lorazepam inj Sodium Chloride 10 ml 06/26/23 21:32 06/26/23 21:35 Sodium Chloride 0.9% 10ml Syr (Rad Only) IV 06/26/23 21:33 10 ml ONCE ONE Administration Sodium Chloride 50 ml 06/26/23 21:32 06/26/23 21:34 0.9 % Sodium Chloride 50 Ml Vial IV 06/26/23 21:33 Not Given ONCE ONE Sodium Chloride 40 ml 06/26/23 21:35 06/26/23 21:35 0.9 % Sodium Chloride 50 Ml Vial IV 06/26/23 21:36 40 ml ONCE ONE Administration ORDERS Category Date Time Status CT angio chest PE protocol Stat Cat Scan 06/26/23 21:14 Completed Chest XR -- portable [XR chest portable] Stat Exams 06/26/23 20:34 Completed CBC w/Auto Diff [Complete Blood Count Auto Diff] Stat Lab 06/26/23 20:29 Completed CMP [Comprehensive Metabolic Panel] Stat Lab 06/26/23 20:29 Completed D-Dimer Stat Lab 06/26/23 20:29 Completed HCG Qualitative, Serum Stat Lab 06/26/23 20:29 Completed INR [Prothrombin Time INR] Stat Lab 06/26/23 20:29 Completed Lactic Acid Stat Lab 06/26/23 20:34 Ordered Lipase Stat Lab 06/26/23 20:29 Completed Magnesium Stat Lab 06/26/23 20:29 Completed Rapid PCR Covid and Flu A/B Stat Lab 06/26/23 21:14 Completed TSH [Thyroid Stimulating Hormone] Stat Lab 06/26/23 20:29 Completed Trop I [Troponin I] Stat Lab 06/26/23 20:29 Completed UA [Urinalysis and Microscopic] Stat Lab 06/26/23 21:44 Completed MDM Narrative Medical Decision Narrative: In summary patient is a 43-year-old female who presents to the emergency department for evaluation of 4 hours of chest pain. Patient is hemodynamically stable upon arrival, afebrile. Physical exam is unremarkable including nonreproducible chest pain but normal heart sounds normal vital signs normal breath sounds no epigastric abdominal pain.. Differential diagnosis includes ACS versus PE versus esophagitis versus other gastrointestinal cause etc. Initial workup will be conducted with hematologic labs, twelve-lead EKG, plain film chest x-ray, CTA of the chest, urinalysis. Initial interventions include Toradol Tylenol and GI cocktail including fluid bolus. Initial workup reviewed by me shows an elevated D-dimer, my informal interpretation of her plain film chest x-ray shows no acute processes, my informal interpretation of her CTA PE protocol does not show any evidence of thrombus or acute disease remainder of her laboratory investigations are nonactionable.. Upon repeat evaluation patient has had complete resolution of her chest pain after administration of GI cocktail. Given this patient is appropriate for discharge home with a prescription for Protonix along with referral to follow-up closely with her PCP this week and asked for referral for gastroenterology for likely further evaluation and workup. Do not know definitively what is the cause of her discomfort was ruled out any serious or life-threatening problem currently and alleviated her pain and am suspicious for gastrointestinal cause. <Jaron Edwards MD - Last Filed: 06/26/23 23:25> Vital Signs Vital Signs: 06/26/23 20:25 06/26/23 20:38 06/26/23 22:05 Temperature 97.8 F 98.0 F Temperature Source Oral Pulse Rate 109 H 84 Pulse Rate [Right Radial] 109 H Respiratory Rate 22 20 Blood Pressure 100/70 L Blood Pressure [Right Arm] 132/86 Blood Pressure Mean [Right Arm] 101 02 Sat by Pulse Oximetry 98 Oxygen Delivery Method Room Air Room Air Lab Data Labs: Lab Results 06/26/23 20:29: WBC 8.3, RBC 4.22, Hgb 13.0, Hct 38.9, MCV 92.1, MCH 30.7, MCHC 33.4, RDW 13.5, Plt Count 199, MPV 7.8, Neut % (Auto) 67.8, Lymph % (Auto) 24.8, [place] % (Auto) 6.4, Eos % (Auto) 0.2, Baso % (Auto) 0.8, Neut # (Auto) 5.6, Lymph # (Auto) 2.1, [place] # (Auto) 0.5, Eos # (Auto) 0.0, Baso # (Auto) 0.1, PT 11.0, INR 1.02, D-Dimer 0.69 H, Sodium 141, Potassium 3.6, Chloride 107, Carbon Dioxide 28, Anion Gap 9.6, BUN 14, Creatinine 0.80, Estimated Creat Clear 116, Estimated GFR 79, Est GFR ( Amer) 96, Glucose 102 H, Calcium 9.6, Magnesium 1.9, Total Bilirubin 1.2, AST 35, ALT 39, Alkaline Phosphatase 66, Troponin I < 0.01, Total Protein 7.3, Albumin 4.4, Globulin 2.9, Albumin/Globulin Ratio 1.5, Lipase 90, TSH 0.69, Serum HCG, Qual Negative 06/26/23 21:14: SARS-CoV-2 (PCR) Not detected, Influenza A Untype (PCR) Not detected, Influenza Type B (PCR) Not detected 06/26/23 21:44: Urine Color Yellow, Urine Appearance Clear, Urine pH 7.0, Ur Specific [place] <= 1.005, Urine Protein Negative, Urine Glucose (UA) Negative, Urine Ketones 1+, Urine Blood 1+, Urine Nitrate Negative, Urine Bilirubin Negative, Urine Urobilinogen 0.2, Ur Leukocyte Esterase Negative, Urine RBC Occasional, Urine WBC Occasional, Ur Squamous Epith Cells 3-5, Urine Bacteria None Response Orders (Tests/Meds): ED MEDICATIONS Discontinued Medications Generic Name Dose Route Start Last Admin Trade Name Freq PRN Reason Stop Dose Admin Acetaminophen 1,000 mg 06/26/23 20:34 06/26/23 21:03 Acetaminophen 1,000mg/100ml Vial IV 06/26/23 20:35 1,000 mg ONCE ONE Administration Belladonna Alkaloids 60 ml 06/26/23 20:34 06/26/23 21:03 Belladonna Alkaloids 60 Ml Ml PO 06/26/23 20:35 60 ml ONCE ONE Administration Iopamidol 70 ml 06/26/23 21:32 06/26/23 21:35 Iopamidol-370 (76%);100ml Bottle IV 06/26/23 21:33 70 ml ONCE ONE Administration Ketorolac Tromethamine 15 mg 06/26/23 20:34 06/26/23 21:03 Ketorolac 30mg/Ml Vial IV 06/26/23 20:35 15 mg ONCE ONE Administration Lorazepam 0.5 mg 06/26/23 20:34 06/26/23 21:03 Lorazepam 2mg/Ml Vial IV 06/26/23 20:35 0.5 mg ONCE ONE Administration Sodium Chloride 10 ml 06/26/23 20:34 Sodium Chloride 0.9% 10ml Vial IV 07/26/23 20:33 NEEDED PRN to Dilute Lorazepam inj Sodium Chloride 10 ml 06/26/23 21:32 06/26/23 21:35 Sodium Chloride 0.9% 10ml Syr (Rad Only) IV 06/26/23 21:33 10 ml ONCE ONE Administration Sodium Chloride 50 ml 06/26/23 21:32 06/26/23 21:34 0.9 % Sodium Chloride 50 Ml Vial IV 06/26/23 21:33 Not Given ONCE ONE Sodium Chloride 40 ml 06/26/23 21:35 06/26/23 21:35 0.9 % Sodium Chloride 50 Ml Vial IV 06/26/23 21:36 40 ml ONCE ONE Administration ORDERS Category Date Time Status CT angio chest PE protocol Stat Cat Scan 06/26/23 21:14 Completed Chest XR -- portable [XR chest portable] Stat Exams 06/26/23 20:34 Completed CBC w/Auto Diff [Complete Blood Count Auto Diff] Stat Lab 06/26/23 20:29 Completed CMP [Comprehensive Metabolic Panel] Stat Lab 06/26/23 20:29 Completed D-Dimer Stat Lab 06/26/23 20:29 Completed HCG Qualitative, Serum Stat Lab 06/26/23 20:29 Completed INR [Prothrombin Time INR] Stat Lab 06/26/23 20:29 Completed Lactic Acid Stat Lab 06/26/23 20:34 Ordered Lipase Stat Lab 06/26/23 20:29 Completed Magnesium Stat Lab 06/26/23 20:29 Completed Rapid PCR Covid and Flu A/B Stat Lab 06/26/23 21:14 Completed TSH [Thyroid Stimulating Hormone] Stat Lab 06/26/23 20:29 Completed Trop I [Troponin I] Stat Lab 06/26/23 20:29 Completed UA [Urinalysis and Microscopic] Stat Lab 06/26/23 21:44 Completed MDM Narrative Medical Decision Narrative: In summary patient is a 43-year-old female who presents to the emergency department for evaluation of 4 hours of chest pain. Patient is hemodynamically stable upon arrival, afebrile. Physical exam is unremarkable including nonreproducible chest pain but normal heart sounds normal vital signs normal breath sounds no epigastric abdominal pain.. Differential diagnosis includes ACS versus PE versus esophagitis versus other gastrointestinal cause etc. Initial workup will be conducted with hematologic labs, twelve-lead EKG, plain film chest x-ray, CTA of the chest, urinalysis. Initial interventions include Toradol Tylenol and GI cocktail including fluid bolus. Initial workup reviewed by me shows an elevated D-dimer, my informal interpretation of her plain film chest x-ray shows no acute processes, my informal interpretation of her CTA PE protocol does not show any evidence of thrombus or acute disease remainder of her laboratory investigations are nonactionable.. Upon repeat evaluation patient has had complete resolution of her chest pain after administration of GI cocktail. Given this patient is appropriate for discharge home with a prescription for Protonix along with referral to follow-up closely with her PCP this week and asked for referral for gastroenterology for likely further evaluation and workup. Do not know definitively what is the cause of her discomfort was ruled out any serious or life-threatening problem currently and alleviated her pain and am suspicious for gastrointestinal cause. I was consulted by the [facility], and we discussed the complexity of the problems being addressed.I approved the treatment and management plan for this patient?s care in the Emergency Department, thus performing a substantive portion of the medical decision making.Signed, Jaron Edwards MD
--- NOTE | 2023-06-26 20:34 | XR_ITS ---
PROCEDURE INFORMATION: Exam: XR Chest Exam date and time: 06/26/2023 8:41 PM Age: 43 years old Clinical indication: Pain; Chest pressure; Additional info: Chest pain TECHNIQUE: Imaging protocol: Radiologic exam of the chest. Views: 1 view. COMPARISON: CR XR CHEST 2V 05/06/2023 10:53 PM FINDINGS: Lungs: Unremarkable. No consolidation. Pleural spaces: Unremarkable. No pleural effusion. No pneumothorax. Heart/Mediastinum: Unremarkable. No cardiomegaly. Bones/joints: Unremarkable. IMPRESSION: No acute findings.
[2023-06-26 20:38] VITALS: PULSE 109
[2023-06-26 20:44] LABS: Basophils # 0.1 K/mm3 (0-0.2); Basophils % 0.8 % (0.1-2.0); Eosinophils % 0.2 % (0.1-12.0); Hematocrit 38.9 % (37.0-47.0); Lymphocytes # 2.1 K/mm3 (0.7-4.5); Lymphocytes % 24.8 % (10-50); Mean Corpuscular HGB Conc 33.4 g/dL (31.8-35.4); Mean Corpuscular Hemoglobin 30.7 pg (27.0-31.2); Mean Corpuscular Volume 92.1 fl (81-99); Mean Platelet Volume 7.8 fl (7.4-10.4); Monocytes # 0.5 K/mm3 (0.1-1.0); Monocytes % 6.4 % (1.7-9.3); Neutrophils # 5.6 K/mm3 (1.8-7.8); Neutrophils % 67.8 % (37.0-80.0); Platelet Count 199 K/mm3 (142-424); Red Blood Count 4.22 M/mm3 (4.20-5.40); Red Cell Distribution Width 13.5 % (11.5-17.5); White Blood Count 8.3 K/mm3 (4.8-10.8)
[2023-06-26 20:47] LABS: Chloride 107 mmol/L (98-107)
[2023-06-26 20:48] LABS: Potassium 3.6 mmoL/L (3.5-5.1); Sodium 141 mmol/L (136-145)
[2023-06-26 20:50] LABS: Alanine Aminotransferase 39 U/L (12-78); Albumin Level 4.4 g/dl (3.5-5.0); Albumin/Globulin Ratio 1.5 (1.1-1.8); Alkaline Phosphatase 66 U/L (38-126); Anion Gap 9.6 mEq/L (5-15); Aspartate Amino Transferase 35 U/L (14-36); Bilirubin,Total 1.2 mg/dl (0.2-1.3); Blood Urea Nitrogen 14 mg/dl (7-17); Calcium 9.6 mg/dl (8.4-10.2); Carbon Dioxide 28 mmol/L (22.0-30.0); Creatinine Clearance Estimated 116 mL/min (50-200); Estimated Glomerular Filt Rate 79 ml/min (>60); GFR (African American) 96 ML/MIN (>60); Globulin 2.9 g/dL (1.3-3.2); Glucose 102 mg/dl (74-100); Lipase 90 U/L (23-300); Total Protein,Serum 7.3 g/dl (6.3-8.2)
[2023-06-26 20:51] LABS: Magnesium 1.9 mg/dl (1.6-2.3)
[2023-06-26 20:55] LABS: INR 1.02 (0.9-1.1)
[2023-06-26 21:02] LABS: D-Dimer 0.69 ug/mL (0.0-0.5)
[2023-06-26] MEDS: KETOROLAC 30MG/ML VIAL 15 MG IV (21:03)
[2023-06-26] MEDS: LORazepam 2MG/ML VIAL 0.5 MG IV (21:03)
[2023-06-26] MEDS: ACETAMINOPHEN 1,000MG/100ML VIAL 1000 MG IV (21:03)
[2023-06-26] MEDS: BELLADONNA ALKALOIDS 60 ML ML PO (21:03)
[2023-06-26 21:09] LABS: Troponin I < 0.01 ng/ml (0.00-0.034)
--- NOTE | 2023-06-26 21:14 | CT_ITS ---
PROCEDURE INFORMATION: Exam: CTA Chest With Contrast Exam date and time: 06/26/2023 9:30 PM Age: 43 years old Clinical indication: Angina pectoris; Patient HX: Chest pain , HX of pe; Additional info: Acute chest pain TECHNIQUE: Imaging protocol: Computed tomographic angiography of the chest with contrast. Exam focused on the arteries. 3D rendering (Not supervised by radiologist): MIP and/or 3D reconstructed images were created by the technologist. Radiation optimization: All CT scans at this facility use at least one of these dose optimization techniques: automated exposure control; mA and/or kV adjustment per patient size (includes targeted exams where dose is matched to clinical indication); or iterative reconstruction. Contrast material: ISOVUE 370; Contrast volume: 70 ml; Contrast route: INTRAVENOUS (IV); COMPARISON: CT ANGIO CHEST PE PROTOCOL 02/22/2021 3:52 PM FINDINGS: Pulmonary arteries: No CT evidence for pulmonary embolism. Great vessels off aortic arch: The mediastinal structures including the esophagus, trachea, great vessels, and heart show no evidence of injury or acute pathologic processes. Aorta: Unremarkable. No aortic aneurysm. No aortic dissection. Lungs: Sub cm calcified granuloma right lower lobe consistent with old granulomatous disease. Pleural spaces: Unremarkable. No pneumothorax. No pleural effusion. Heart: See Great vessels off aortic arch finding. Lymph nodes: Calcified subcarinal lymph nodes Bones/joints: Unremarkable. No acute fracture. Soft tissues: Unremarkable. IMPRESSION: 1. No CT evidence for pulmonary embolism. 2. No acute abnormalities are identified.
[2023-06-26 21:21] LABS: Thyroid Stimulating Hormone 0.69 uIU/mL (0.465-4.68)
[2023-06-26 21:26] LABS: HCG Qualitative, Serum Negative (Negative)
[2023-06-26] MEDS: IOPAMIDOL-370 (76%);100ML BOTTLE 70 ML IV (21:35)
[2023-06-26] MEDS: SODIUM CHLORIDE 0.9% 10ML SYR (RAD ONLY) 10 ML IV (21:35)
[2023-06-26] MEDS: 0.9 % SODIUM CHLORIDE 50 ML VIAL 40 ML IV (21:35)
[2023-06-26 21:44] LABS: Coronavirus 19, PCR Not Detected (NotDetected); Influenza A, PCR Not Detected (NotDetected); Influenza B, PCR Not Detected (NotDetected)
[2023-06-26 21:46] LABS: Microscopic, Urine URINE MICROSCOPIC (MICROSCOPIC)
[2023-06-26 21:53] LABS: Appearance,Urine CLEAR (Clear); Bilirubin,Urine Negative (Negative); Blood, Urine 1+ (Negative); Color,Urine YELLOW (Yellow); Glucose,Urine (UA) Negative (Negative); Ketones,Urine 1+ (Negative); Leukocyte Esterase,Urine Negative (Negative); Nitrate,Urine Negative (Negative); Protein,Urine Negative (Negative); Specific Gravity, Urine <= 1.005 (1.005-1.030); Urobilinogen,Urine 0.2 EU/dl (0.2)
[2023-06-26 22:05] VITALS: BP 100/70; PULSE 84; RESP 20; TEMP 36.7; O2SAT 95
[2023-06-26 22:25] LABS: RBC,Urine Occasional #/hpf (0-3); WBC,Urine Occasional #/hpf (0-3)
== END 2023-06-26 22:06 | disposition home or self-care (01) ==
PROVIDERS: Physician Assistant; Emergency Provider Emergency Medicine; PCP Family Medicine
DX: R07.9 Chest pain, unspecified (principal); R00.0 Tachycardia, unspecified; F17.210 Nicotine dependence, cigarettes, uncomplicated
CPT/HCPCS: 71045; 71275; 80053; 81001; 83605; 83690; 83735; 84443; 84484; 84703; 85025; 85378; 85610; 87636; 93005; 96374; 96375; 99285; J0131; Q9967

== ENCOUNTER 2023-09-19 13:58 | Emergency (ER) | payer BC, SELFPAY ==
[2023-09-19 13:59] VITALS: BP 137/86; PULSE 80; RESP 20; TEMP 36.8; O2SAT 98; BMI 28.6
--- NOTE | 2023-09-19 14:14 | ED_ITS ---
Discharge Plan Disposition Patient Disposition: Home, Self-Care Condition: Good Prescriptions Prescriptions: No Action PNV cmb#95-ferrous fumarate-FA 1 EACH tablet 1 each PO DAILY citalopram 10 MG tablet 10 mg PO DAILY 0RF pantoprazole [Protonix] 40 mg tablet,delayed release (DR/EC) 40 mg PO HS 28 Days Qty: 28 0RF Referrals Follow up/Referrals: Provider,Referral, MD [Primary Care Provider] - See instructions Activity Restrictions/Add. Instructions Additional Instructions/Restrictions: Please follow-up with your PCP for referral for a HIDA scan and EGD as an outpatient. Return to ER for any worsening signs or symptoms as needed. Clinical Impressions Clinical Impression: Right upper quadrant pain Instructions Patient Instructions: DI for Acute Abdominal Pain Discharge ED Provider: Ashok Goins General Adult HPI <BENITO Salguero - Last Filed: 09/19/23 16:59> General Chief complaint: Abdominal Pain Stated complaint: gallbladder issues, stomach pain Time Seen by Provider: 09/19/23 14:14 History of Present Illness HPI narrative: Patient presents for evaluation of right upper quadrant pain. Patient states that she woke this morning with right upper quadrant pain that has been unrelenting. She has been able to tolerate oral intake with no worsening of her pain. She denies chest pain shortness of breath fever chills hemoptysis hematochezia melena nausea but no vomiting or diarrhea. Related Data Home Medications Medication Instructions Recorded Confirmed vit no.95-ferrous 1 each PO DAILY Supplement 02/22/21 02/22/21 fumarate 28 mg-folic acid 800 mcg tablet Previous Rx's Medication Instructions Recorded citalopram 10 mg tablet 10 mg PO DAILY 02/22/21 pantoprazole 40 mg tablet,delayed 40 mg PO HS 4 weeks #28 tabs 06/26/23 release (Protonix) Allergies Allergy/AdvReac Type Severity Reaction Status Date / Time No Known Allergies Allergy Unverified 02/27/17 15:36 PFSH <BENITO Salguero - Last Filed: 09/19/23 16:59> [facility] Disclaimer: The information contained in this section may have been updated after the patient was seen, as this information can be updated by other users. Social History Smoking Status: Current every day smoker alcohol intake: never substance use type: denies use current occupational status: unemployed Travel in the last 8 weeks: None <BENITO Salguero - Last Filed: 09/19/23 16:59> ROS Obtained: Yes Systems reviewed as appropriate & no additional complaints except as documented Physical Exam <BENITO Salguero - Last Filed: 09/19/23 16:59> General General appearance: alert and in no apparent distress Respiratory Respiratory exam: Present normal lung sounds bilaterally Cardiovascular Cardiovascular exam: Present regular rate and normal rhythm Abdominal Exam Abdominal exam: Present soft, tenderness (Mildly tender to palpation in the right upper quadrant and epigastrium without rebound or guarding or rigidity.) and normal bowel sounds; Absent guarding or rebound Extremities Exam Extremities exam: Present normal inspection and full ROM Back Exam Back exam: Present normal inspection and full ROM; Absent tenderness Neurological Exam Neurological exam: Present alert and oriented X3 Medical Decision Making <BENITO Salguero - Last Filed: 09/19/23 16:59> Medical Records Medical records reviewed: Yes I reviewed the patient's medical records. Brandon Inquiry Pt receiving controlled substance: No Vital Signs: 09/19/23 13:59 09/19/23 14:30 09/19/23 15:00 Temperature 98.3 F Temperature Source Oral Pulse Rate 88 69 Pulse Rate [Right Radial] 80 Respiratory Rate 20 Blood Pressure 125/84 114/73 Blood Pressure [Right Arm] 137/86 Blood Pressure Mean 89 82 Blood Pressure Mean [Right Arm] 103 02 Sat by Pulse Oximetry 98 97 95 Oxygen Delivery Method Room Air 09/19/23 15:30 09/19/23 16:00 09/19/23 17:08 Temperature 97.9 F Temperature Source Pulse Rate 77 61 78 Pulse Rate [Right Radial] Respiratory Rate 18 Blood Pressure 137/88 121/73 131/77 Blood Pressure [Right Arm] Blood Pressure Mean 104 89 Blood Pressure Mean [Right Arm] 02 Sat by Pulse Oximetry 96 100 Oxygen Delivery Method Room Air Lab Data Lab results reviewed: Yes I reviewed the patient's lab results. Lab Results 09/19/23 14:44: Urine Color Yellow, Urine Appearance Clear, Urine pH 7.0, Ur Specific [place] <= 1.005, Urine Protein Negative, Urine Glucose (UA) Negative, Urine Ketones Negative, Urine Blood Trace-i, Urine Nitrate Negative, Urine Bilirubin Negative, Urine Urobilinogen 0.2, Ur Leukocyte Esterase Negative, Urine RBC None, Urine WBC None, Ur Squamous Epith Cells Occasional, Urine Bacteria None 09/19/23 14:50: WBC 9.1, RBC 4.46, Hgb 14.3, Hct 41.2, MCV 92.3, MCH 32.1 H, MCHC 34.8, RDW 14.5, Plt Count 253, MPV 7.6, Neut % (Auto) 79.3, Lymph % (Auto) 13.3, Atkinson % (Auto) 4.7, Eos % (Auto) 1.5, Baso % (Auto) 1.3, Neut # (Auto) 7.2, Lymph # (Auto) 1.2, Atkinson # (Auto) 0.4, Eos # (Auto) 0.1, Baso # (Auto) 0.1, Sodium 140, Potassium 4.1, Chloride 106, Carbon Dioxide 28, Anion Gap 10.1, BUN 13, Creatinine 0.80, Estimated Creat Clear 111, Estimated GFR 79, Est GFR ( Amer) 96, Glucose 95, Calcium 9.4, Magnesium 2.0, Total Bilirubin 0.7, AST 28, ALT 26, Alkaline Phosphatase 63, Total Protein 7.6, Albumin 4.6, Globulin 3.0, Albumin/Globulin Ratio 1.5, Lipase 100, Procalcitonin < 0.030 09/19/23 14:50 09/19/23 14:50 Orders (Tests/Meds): ED MEDICATIONS Discontinued Medications Generic Name Dose Route Start Last Admin Trade Name Freq PRN Reason Stop Dose Admin Acetaminophen 1,000 mg 09/19/23 14:41 09/19/23 15:04 Acetaminophen 1,000mg/100ml Vial IV 09/19/23 14:42 1,000 mg ONCE ONE Administration Belladonna Alkaloids 60 ml 09/19/23 14:41 09/19/23 15:04 Belladonna Alkaloids 60 Ml Ml PO 09/19/23 14:42 60 ml ONCE ONE Administration Lactated Ringer's 1,000 mls @ 999 mls/hr 09/19/23 14:41 09/19/23 15:04 Lactated Ringer's 1000 Ml Bag IV 09/19/23 15:41 999 mls/hr .Q1H1M ONE Administration Iopamidol 75 ml 09/19/23 15:50 09/19/23 15:51 Iopamidol-370 (76%);100ml Bottle IV 09/19/23 15:51 75 ml ONCE ONE Administration Ketorolac Tromethamine 15 mg 09/19/23 14:41 09/19/23 15:04 Ketorolac 30mg/Ml Vial IV 09/19/23 14:42 15 mg ONCE ONE Administration Sodium Chloride 10 ml 09/19/23 15:50 09/19/23 15:51 Sodium Chloride 0.9% 10ml Syr (Rad Only) IV 09/19/23 15:51 10 ml ONCE ONE Administration ORDERS Category Date Time Status CT abdomen pelvis w con Stat Cat Scan 09/19/23 14:41 Completed POCUS Point of Care (ER Only) Stat Exams 09/19/23 14:45 Completed CBC w/Auto Diff [Complete Blood Count Auto Diff] Stat Lab 09/19/23 14:50 Completed CMP [Comprehensive Metabolic Panel] Stat Lab 09/19/23 14:50 Completed Lipase Stat Lab 09/19/23 14:50 Completed Magnesium Stat Lab 09/19/23 14:50 Completed Procalcitonin Stat Lab 09/19/23 14:50 Completed UA [Urinalysis and Microscopic] Stat Lab 09/19/23 14:44 Completed Medical Decision Narrative: In summary patient is a 43-year-old female who presents to the emergency department for evaluation of right upper quadrant abdominal pain. Patient is hemodynamically stable upon arrival, afebrile. Physical exam is remarkable for mild tenderness to palpation in the epigastrium and right upper quadrant without rebound or guarding or rigidity. Bowel sounds are normal active.. Differential diagnosis includes gastritis versus cholelithiasis versus cholecystitis versus pancreatitis etc. Initial workup will be conducted with hematologic labs urinalysis CT scan abdomen pelvis. Initial interventions include crystalloid bolus Toradol Tylenol. Initial workup reviewed by me shows that her hematologic labs are nonactionable, POCUS revealed no abnormalities, and my informal interpretation of CT scan abdomen pelvis also revealed no acute processes.. Upon repeat evaluation patient did have resolution mostly of her discomfort after especially the ingestion of the GI cocktail. Given this patient is appropriate for discharge with close follow-up with her PCP for referral for HIDA scan and EGD. <Ashok Goins MD - Last Filed: 09/19/23 19:25> Vital Signs: 09/19/23 13:59 09/19/23 14:30 09/19/23 15:00 Temperature 98.3 F Temperature Source Oral Pulse Rate 88 69 Pulse Rate [Right Radial] 80 Respiratory Rate 20 Blood Pressure 125/84 114/73 Blood Pressure [Right Arm] 137/86 Blood Pressure Mean 89 82 Blood Pressure Mean [Right Arm] 103 02 Sat by Pulse Oximetry 98 97 95 Oxygen Delivery Method Room Air 09/19/23 15:30 09/19/23 16:00 09/19/23 17:08 Temperature 97.9 F Temperature Source Pulse Rate 77 61 78 Pulse Rate [Right Radial] Respiratory Rate 18 Blood Pressure 137/88 121/73 131/77 Blood Pressure [Right Arm] Blood Pressure Mean 104 89 Blood Pressure Mean [Right Arm] 02 Sat by Pulse Oximetry 96 100 Oxygen Delivery Method Room Air Lab Data Lab Results 09/19/23 14:44: Urine Color Yellow, Urine Appearance Clear, Urine pH 7.0, Ur Specific [place] <= 1.005, Urine Protein Negative, Urine Glucose (UA) Negative, Urine Ketones Negative, Urine Blood Trace-i, Urine Nitrate Negative, Urine Bilirubin Negative, Urine Urobilinogen 0.2, Ur Leukocyte Esterase Negative, Urine RBC None, Urine WBC None, Ur Squamous Epith Cells Occasional, Urine Bacteria None 09/19/23 14:50: WBC 9.1, RBC 4.46, Hgb 14.3, Hct 41.2, MCV 92.3, MCH 32.1 H, MCHC 34.8, RDW 14.5, Plt Count 253, MPV 7.6, Neut % (Auto) 79.3, Lymph % (Auto) 13.3, Atkinson % (Auto) 4.7, Eos % (Auto) 1.5, Baso % (Auto) 1.3, Neut # (Auto) 7.2, Lymph # (Auto) 1.2, Atkinson # (Auto) 0.4, Eos # (Auto) 0.1, Baso # (Auto) 0.1, Sodium 140, Potassium 4.1, Chloride 106, Carbon Dioxide 28, Anion Gap 10.1, BUN 13, Creatinine 0.80, Estimated Creat Clear 111, Estimated GFR 79, Est GFR ( Amer) 96, Glucose 95, Calcium 9.4, Magnesium 2.0, Total Bilirubin 0.7, AST 28, ALT 26, Alkaline Phosphatase 63, Total Protein 7.6, Albumin 4.6, Globulin 3.0, Albumin/Globulin Ratio 1.5, Lipase 100, Procalcitonin < 0.030 Orders (Tests/Meds): ED MEDICATIONS Discontinued Medications Generic Name Dose Route Start Last Admin Trade Name Ottoniel PRN Reason Stop Dose Admin Acetaminophen 1,000 mg 09/19/23 14:41 09/19/23 15:04 Acetaminophen 1,000mg/100ml Vial IV 09/19/23 14:42 1,000 mg ONCE ONE Administration Belladonna Alkaloids 60 ml 09/19/23 14:41 09/19/23 15:04 Belladonna Alkaloids 60 Ml Ml PO 09/19/23 14:42 60 ml ONCE ONE Administration Lactated Ringer's 1,000 mls @ 999 mls/hr 09/19/23 14:41 09/19/23 15:04 Lactated Ringer's 1000 Ml Bag IV 09/19/23 15:41 999 mls/hr .Q1H1M ONE Administration Iopamidol 75 ml 09/19/23 15:50 09/19/23 15:51 Iopamidol-370 (76%);100ml Bottle IV 09/19/23 15:51 75 ml ONCE ONE Administration Ketorolac Tromethamine 15 mg 09/19/23 14:41 09/19/23 15:04 Ketorolac 30mg/Ml Vial IV 09/19/23 14:42 15 mg ONCE ONE Administration Sodium Chloride 10 ml 09/19/23 15:50 09/19/23 15:51 Sodium Chloride 0.9% 10ml Syr (Rad Only) IV 09/19/23 15:51 10 ml ONCE ONE Administration ORDERS Category Date Time Status CT abdomen pelvis w con Stat Cat Scan 09/19/23 14:41 Completed POCUS Point of Care (ER Only) Stat Exams 09/19/23 14:45 Completed CBC w/Auto Diff [Complete Blood Count Auto Diff] Stat Lab 09/19/23 14:50 Completed CMP [Comprehensive Metabolic Panel] Stat Lab 09/19/23 14:50 Completed Lipase Stat Lab 09/19/23 14:50 Completed Magnesium Stat Lab 09/19/23 14:50 Completed Procalcitonin Stat Lab 09/19/23 14:50 Completed UA [Urinalysis and Microscopic] Stat Lab 09/19/23 14:44 Completed Procedures <Ashok Goins MD - Last Filed: 09/19/23 19:25> Limited Ultrasound Indication:: Limited RUQ ultrasound Indication: Abdominal pain Identified structures: -Gallbladder -Gallbladder wall -Common bile duct -Liver Findings: Sonographic Soriano sign: Absent Gallstones: Absent Sludge: Absent Pericholecystic fluid: Absent Maximal GB wall thickness (mm) (normal is </= 3mm): Normal Common bile duct width (mm) (normal is </= 6mm): Normal Gallbladder width (cm) (normal is < 4cm): Normal Gallbladder length (cm) (normal is < 10cm): Normal Impression: Normal right upper quadrant ultrasound, gallbladder polyp Images were saved to permanent archive The study was technically adequate CPT 44811-30 This study was performed by me, and I personally interpreted all images/videos. Based on my clinical judgement, these images were adequate and did not necessitate further imaging. Critical Care <BENITO Salguero - Last Filed: 09/19/23 16:59> Critical Care Time Critical Care Time: No
[2023-09-19 14:30] VITALS: BP 125/84; PULSE 88; O2SAT 97
--- NOTE | 2023-09-19 14:41 | CT_ITS ---
FINAL REPORT TECHNIQUE: After the administration of oral and intravenous contrast, axial images were obtained through the abdomen and pelvis by computed tomography. The study was performed with techniques to keep radiation dose as low as reasonably achievable, (ALARA). Individual dose reduction techniques using automated exposure control or adjustment of mA and/or kV according to the patient's size were employed. CLINICAL HISTORY: Right upper quadrant abdominal pain FINDINGS: Abdomen: The lung bases are clear. The liver is normal in size and attenuation. There is a stone or polyp in the gallbladder. There is no evidence of biliary ductal dilatation. The spleen is unremarkable. The adrenals are normal. The pancreas is unremarkable. The kidneys enhance appropriately. The aorta is normal in caliber. There is no free fluid or adenopathy. Pelvis: There is a 23 mm left ovarian corpus luteum cyst. The cecum extends to the left mid pelvis of uncertain significance, may be congenital. The visualized appendix in the left pelvis has an unremarkable appearance. There are multiple fluid-filled small bowel loops, may represent enteritis. The urinary bladder is unremarkable. There is no free fluid or adenopathy. IMPRESSION: Gallbladder stone or polyp. Gallbladder ultrasound may be helpful. Cecum extends to the left mid pelvis, may be congenital. Findings may represent enteritis. Left ovarian corpus luteum cyst. Reviewed, Interpreted and Dictated by Tom Baum III, MD Transcribed by Blanca Knutson Authenticated and [facility]
[2023-09-19 14:48] LABS: Microscopic, Urine URINE MICROSCOPIC (MICROSCOPIC)
[2023-09-19 15:00] VITALS: BP 114/73; PULSE 69; O2SAT 95
[2023-09-19 15:04] LABS: Appearance,Urine CLEAR (Clear); Bilirubin,Urine Negative (Negative); Blood, Urine TRACE-I (Negative); Color,Urine YELLOW (Yellow); Glucose,Urine (UA) Negative (Negative); Ketones,Urine Negative (Negative); Leukocyte Esterase,Urine Negative (Negative); Nitrate,Urine Negative (Negative); Protein,Urine Negative (Negative); Specific Gravity, Urine <= 1.005 (1.005-1.030); Urobilinogen,Urine 0.2 EU/dl (0.2)
[2023-09-19] MEDS: BELLADONNA ALKALOIDS 60 ML ML PO (15:04)
[2023-09-19] MEDS: KETOROLAC 30MG/ML VIAL 15 MG IV (15:04)
[2023-09-19] MEDS: LACTATED RINGERS 1000ML 1,000 ML 999 ML IV (15:04)
[2023-09-19] MEDS: ACETAMINOPHEN 1,000MG/100ML VIAL 1000 MG IV (15:04)
[2023-09-19 15:06] LABS: Basophils # 0.1 K/mm3 (0-0.2); Basophils % 1.3 % (0.1-2.0); Eosinophils # 0.1 K/mm3 (0.0-0.4); Eosinophils % 1.5 % (0.1-12.0); Hematocrit 41.2 % (37.0-47.0); Hemoglobin 14.3 g/dL (12.2-16.2); Lymphocytes # 1.2 K/mm3 (0.7-4.5); Lymphocytes % 13.3 % (10-50); Mean Corpuscular HGB Conc 34.8 g/dL (31.8-35.4); Mean Corpuscular Hemoglobin 32.1 pg (27.0-31.2); Mean Corpuscular Volume 92.3 fl (81-99); Mean Platelet Volume 7.6 fl (7.4-10.4); Monocytes # 0.4 K/mm3 (0.1-1.0); Monocytes % 4.7 % (1.7-9.3); Neutrophils # 7.2 K/mm3 (1.8-7.8); Neutrophils % 79.3 % (37.0-80.0); Platelet Count 253 K/mm3 (142-424); Red Blood Count 4.46 M/mm3 (4.20-5.40); Red Cell Distribution Width 14.5 % (11.5-17.5); White Blood Count 9.1 K/mm3 (4.8-10.8)
[2023-09-19 15:12] LABS: Alanine Aminotransferase 26 U/L (12-78); Albumin Level 4.6 g/dl (3.5-5.0); Albumin/Globulin Ratio 1.5 (1.1-1.8); Alkaline Phosphatase 63 U/L (38-126); Anion Gap 10.1 mEq/L (5-15); Aspartate Amino Transferase 28 U/L (14-36); Bilirubin,Total 0.7 mg/dl (0.2-1.3); Blood Urea Nitrogen 13 mg/dl (7-17); Calcium 9.4 mg/dl (8.4-10.2); Carbon Dioxide 28 mmol/L (22.0-30.0); Chloride 106 mmol/L (98-107); Creatinine Clearance Estimated 111 mL/min (50-200); Estimated Glomerular Filt Rate 79 ml/min (>60); GFR (African American) 96 ML/MIN (>60); Glucose 95 mg/dl (74-100); Lipase 100 U/L (23-300); Potassium 4.1 mmoL/L (3.5-5.1); Sodium 140 mmol/L (136-145); Total Protein,Serum 7.6 g/dl (6.3-8.2)
[2023-09-19 15:18] LABS: Squamous Epithelial Cell,Urine Occasional #/hpf (0-5)
[2023-09-19 15:30] VITALS: BP 137/88; PULSE 77; O2SAT 96
[2023-09-19 15:33] LABS: Procalcitonin < 0.030 ng/mL (0.0-2.0)
[2023-09-19] MEDS: SODIUM CHLORIDE 0.9% 10ML SYR (RAD ONLY) 10 ML IV (15:51)
[2023-09-19] MEDS: IOPAMIDOL-370 (76%);100ML BOTTLE 75 ML IV (15:51)
[2023-09-19 16:00] VITALS: BP 121/73; PULSE 61; O2SAT 100
[2023-09-19 17:08] VITALS: BP 131/77; PULSE 78; RESP 18; TEMP 36.6; O2SAT 98
== END 2023-09-19 17:09 | disposition home or self-care (01) ==
PROVIDERS: Physician Assistant; Emergency Provider Emergency Medicine
DX: R10.11 Right upper quadrant pain (principal); F17.210 Nicotine dependence, cigarettes, uncomplicated
CPT/HCPCS: 74177; 80053; 81001; 83690; 83735; 84145; 85025; 96361; 96374; 96375; 99285; J0131; J1885; J7120; Q9967

== ENCOUNTER 2023-09-25 13:55 | Outpatient (CLI) | payer OTHER, SELFPAY ==
--- NOTE | 2023-09-25 14:02 | US_ITS ---
FINAL REPORT TECHNIQUE: Sonographic images of the thyroid gland were obtained in the longitudinal and transverse planes. CLINICAL HISTORY: LOW LEVELS,NODULE COMPARISON: 05/03/2021 FINDINGS: The right lobe measures 4.9 x 1.4 x 2.4 cm. The right lobe is homogeneous. There is a tiny, 2 mm colloid cyst. The left lobe measures 4.8 x 1.5 x 1.3 cm. The left lobe is homogeneous. There is a 3 mm colloid cyst. The isthmus measures 3 mm. This is normal. IMPRESSION: Bilateral colloid cysts. These are benign lesions. No follow-up is recommended. Reviewed, Interpreted and Dictated by Keyona Walker MD Transcribed by Blanca Knutson Authenticated and [facility]
== END 2023-09-25 23:59 | disposition home or self-care (01) ==
LOC: RAD 13:57
PROVIDERS: PCP Family Medicine; Visit Provider Nurse Practitioner
DX: E04.1 Nontoxic single thyroid nodule (principal); R79.89 Other specified abnormal findings of blood chemistry
CPT/HCPCS: 76536

== ENCOUNTER 2024-09-09 14:22 | Outpatient (CLI) | payer OTHER, SELFPAY ==
--- OUTSIDE RECORDS SUMMARY | 2024-09-09 14:24 | XMS_ITS | Clinical Summary ---
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 Name Role Phone Unavailable Primary Care Provider Unavailabl e Social History Tobacco Use Types Packs/Day Years Used Date Smoking Tobacco: Never Assessed Comments Unknown Sex and Gender Information Value Date Recorded Sex Assigned at Not on file Legal Sex Female 11:42 PM EDT Gender Identity Not on file Sexual Orientation Not on file Plan of Treatment Health Maintenance Due Date Last Done Comments Annual Wellness Exam 1985 DTaP/TDaP/Td (1 - Tdap) 2001 Hepatitis B Vaccine (1 of 3 - 19+ 3-dose series) 2001 COVID-19 Vaccine (2023-2 5 season) 2023 Influenza Vaccine (Season Ended) 2024 Meningococcal B Vaccine Aged Out No l onger eligible based on patient's age to complete this topic Pneumococcal Vaccine 0-49 Aged Out No longer eligible based on patient's age to complete this topic
--- OUTSIDE RECORDS SUMMARY | 2024-09-09 14:24 | XMS_ITS | Clinical Summary ---
Author Organization Healthcare Address [address] [place] [address] Care Team Providers Care Sole Stapler Welt Name Role Phone Ankit Basilio MD Primary Care Provider [phone] Allergies No known active allergies Medications levothyroxine (Synthroid, Levoxyl) 50 MCG tabletIndications:O ther specified hypothyroidism Take 1 tablet (50 mcg total) by mouth 1 (one) time each day before breakfast. 30 tablet 11 Active Immunizations Immunization Administration Dates Next Due Influenza, injectable, quadr ivalent, preservative free, pediatric 12/01/2020 Tdap 12/01/2020 Social History Tobacco Use Types Packs/Day Years Used Date Smoking Tobacco: Every Day Smokeless Tobacco: Current Tobacco Cessation:Ready to Q uit: Not Asked; Counseling Given: Not Answered Alcohol Use Standard Drinks/Week Comments Yes 0 (1 standard drink = 0.6 oz pur e alcohol) PHQ-2 Answer Date Recorded Patient Health Questionnaire-2 Score 0 01/26/2023 Naches Depression Scale Answer Date Recorded Naches Depression Scale Total 4 03/17/2021 The thought of harming myself has occurred to me . Never 03/17/2021 PHQ-2A Answer Date Recorded Patient Health Questionnaire-2 Score 0 01/26/2023 Comments No Sex and Gender Information Value Date Recorded Sex Assigned at Not on file Legal Sex Female 6:05 PM EDT Gender Identity Not on file Sexual Orientation Not on file Last Filed Vital Signs Vital Sign Reading Time Taken Comments Blood Pressure 136/90 01/26/2023 9:52 AM EST Pulse 100 01/26/2023 9:52 AM EST Temperature - - Respiratory Rate 18 01/26/2023 9:52 AM EST Oxygen Saturation - - Inhaled Oxygen Concentration - - Weight 81.5 kg (179 lb 10.8 oz) 01/26/2023 9:52 AM EST Height 162.6 cm (5' 4 ) 01/26/2023 9:52 AM EST Body Mass Index 30.84 01/26/2023 9:52 AM EST Plan of Treatment Health Maintenance Due Date Last Done Comments [facility]-Infant/Child/Adol SDOH Screenings 1982 [facility]-Varicella Vaccines (1 of 2 - 13+ 2-dose series) 06/25/1995 HPV Vaccines (1 - 3-dose series) 1997 [facility]- SDOH Screenings 2000 [facility]-Adult SDOH Screenings 2000 [facility]-Hepatitis B Vaccines (1 of 3 - 19+ 3-dose series) 2001 [facility]-Pap Smear 06/25/2003 [facility]-Cervical Cancer Screening 2012 [facility]-HPV/Cotest 2012 [id number] Vaccine ( season) 2023 11/24/2020, 11/03/2020 [facility]-Depression Screening 01/27/2024 023, 03/17/2021 [facility]-Influenza Vaccine (Seaso n Ended) 2024 12/01/2020, 12/04/2016, 01/04/2016 [facility]-DTaP,Tdap,and Td Vaccine s (2 - Td or Tdap) 12/01/2030 12/01/2020 [facility]-Zoster Vaccines (1 of 2) 2032 [facility]-HIV Screening Completed 06/30/2020, 06/30/2020 [facility]-Hepatitis C Screening Completed 06/30/2020 [facility]-Obesity Intervention Completed 01/26/2023 [facility]-HIB Vaccines Aged Out No longer e ligible based on patient's age to complete this topic [facility]-Hepatitis A Vaccines Aged Out No longer eligible based on patient's age to complete this topic [facility]-IPV Vaccines Aged Out No longer e ligible based on patient's age to complete this topic [facility]-Pneumococcal Vaccine: Pediatrics (0 to 5 Years) and At-Risk Patients (6 to 49 Years) Aged Out No longer eligible b ased on patient's age to complete this topic [facility]-Rotavirus Vaccines Aged Out No lo nger eligible based on patient's age to complete this topic Procedures Procedure Name Priority Date/Time Associated Diagnosis Comments HEPATITIS C ANTIBODY W/REFLEX TO HCV QUANT PCR Routine 06/30/2020 10:46 AM EDT HIV 1/2 ANTIBODY/ANTIGEN SCREEN WITH REFLEX TO HIV I/II DIFFERENTIATION Routine 06/30/2020 10:46 AM EDT from Last 3 Months or Most Recently Relevant to Health Maintenance Results * HIV 1 & 2 Antibody/Antigen Screen (06/30/2020 10:46 AM EDT) HIV 1 Result NONREACTIVE Screening for HIV 1 and 2 antibodies is NONREACTIVE. No confirmatory testing is required. SUNQUEST 06/30/2020 10:4 6 AM EDT 06/30/2020 12:56 PM EDT us Umer Arellano MD LAB BLOOD ORDERABLES Final Resu lt Performing Organization Address [facility] de Phone Number SUNQUEST * Hepatitis C Antibody (06/30/2020 10:46 AM EDT) Hepatitis C Antibody NEGATIVE Reference Range: Negative SUNQUEST 06/30/2020 10:4 6 AM EDT 06/30/2020 12:56 PM EDT us Umer Arellano MD LAB BLOOD ORDERABLES Final Resu lt Performing Organization Address [facility] Co de Phone Number SUNQUEST from Last 3 Months or Most Recently Relevant to Health Maintenance Insurance [employer] [facility] MEDICAID Care Teams Sole Stapler Welt Relationship Specialty Start Date End Date Ankit Basilio MD [address] [place] [address] PCP - General 07/23/20
--- NOTE | 2024-09-09 14:25 | MM_ITS ---
PROCEDURE INFORMATION: Exam: MG Bilateral Screening 3D Mammography Exam date and time: 09/09/2024 2:30 PM Age: 44 years old Clinical indication: Screening examination TECHNIQUE: Imaging protocol: Bilateral Screening tomosynthesis and 2D mammography including computer-aided detection (CAD) when performed. COMPARISON: No relevant prior studies available. FINDINGS: MAMMOGRAPHY: Breast composition: There are scattered areas of fibroglandular density. Mass: None. Architectural distortion: None. Calcifications: No suspicious calcifications. Asymmetric density: None. Skin thickening: None. Axillary adenopathy: None. IMPRESSION: No mammographic evidence of malignancy. Annual screening is recommended unless otherwise clinically indicated. ASSESSMENT: BI-RADS Category 1: Negative.
== END 2024-09-09 23:59 | disposition home or self-care (01) ==
LOC: RAD 14:23
PROVIDERS: PCP Nurse Practitioner; Visit Provider Nurse Practitioner
DX: Z12.31 Encounter for screening mammogram for malignant neoplasm of breast (principal); R92.323 Mammographic fibroglandular density, bilateral breasts
CPT/HCPCS: 77063; 77067

== ENCOUNTER 2024-11-21 01:51 | Emergency (ER) | payer OTHER, SELFPAY ==
[2024-11-21] VITALS (9 sets, daily range): BP systolic 99–151; BP diastolic 65–90; PULSE 61–106; RESP 15–18; TEMP 36.7–36.8; O2SAT 95–98; BMI 30.9
--- NOTE | 2024-11-21 01:57 | ECG_ITS ---
APPROVED REPORT Exam: Resting ECG HR:108 bpm ECG Measurements Heart Rate 108 AXES MA 157 P 17 QRSd 85 QRS 28 QT 312 T 1 QTc [address] DEVIATION AND MODERATE T-WAVE ABNORMALITY, CONSIDER ANTERIOR ISCHEMIA [-0.1+ mV T-WAVE IN V3/V4] No STEMI Electronically signed by : WERNER ZAYAS, 11/22/2024 07:07:03
--- NOTE | 2024-11-21 02:00 | XR_ITS ---
PROCEDURE INFORMATION: Exam: XR Chest Exam date and time: 11/21/2024 2:19 AM Age: 44 years old Clinical indication: Pain; Chest pressure; Additional info: Cp TECHNIQUE: Imaging protocol: Radiologic exam of the chest. Views: 2 views. COMPARISON: CT ANGIO CHEST PE PROTOCOL 06/26/2023 9:30 PM FINDINGS: Lungs: Unremarkable. No consolidation. Pleural spaces: Unremarkable. No pleural effusion. No pneumothorax. Heart/Mediastinum: Unremarkable. No cardiomegaly. Bones/joints: Unremarkable. IMPRESSION: No acute findings.
[2024-11-21 02:08] LABS: Hematocrit 37.6 % (37.0-47.0); Hemoglobin 13.1 g/dL (12.2-16.2); Immature Granulocytes % 0.2 %; Mean Corpuscular HGB Conc 34.8 g/dL (31.8-35.4); Mean Corpuscular Hemoglobin 31.3 pg (27.0-31.2); Mean Corpuscular Volume 90.0 fl (81-99); Nucleated Red Blood Cells % 0 %; Platelet Count 253 K/mm3 (142-424); Red Blood Count 4.18 M/mm3 (4.20-5.40); Red Cell Distribution Width-SD 41.5 fL; White Blood Count 9.2 K/mm3 (4.8-10.8)
[2024-11-21 02:14] LABS: Albumin Level 4.5 g/dl (3.5-5.0); Chloride 109 mmol/L (98-107); Potassium 3.6 mmoL/L (3.5-5.1); Sodium 142 mmol/L (136-145)
--- NOTE | 2024-11-21 02:15 | ED_ITS ---
Discharge Plan Disposition Patient Disposition: Home, Self-Care Condition: Good Prescriptions Prescriptions: New ondansetron 4 mg tablet,disintegrating 4 mg PO Q6H PRN (Reason: nausea and vomiting) Qty: 10 0RF No Action PNV no.95-ferrous fumarate-FA 1 EACH tablet 1 each PO DAILY citalopram 10 MG tablet 10 mg PO DAILY 0RF pantoprazole [Protonix] 40 mg tablet,delayed release (DR/EC) 40 mg PO HS 28 Days Qty: 28 0RF Referrals Follow up/Referrals: Provider,Referral, MD [Primary Care Provider, Medical] - See instructions Activity Restrictions/Add. Instructions Additional Instructions/Restrictions: You were evaluated in the ER and are believed to be appropriate for discharge at this time. Continue taking any home medications as previously prescribed. Take the prescribed Zofran as directed. Drink water, Gatorade, Pedialyte to stay hydrated. Make an appointment with your primary care doctor for reevaluation in 2 to 3 days. Return to the ER with any new, worsening, or otherwise concerning symptoms. Clinical Impressions Clinical Impression: Chest pain, Nausea, vomiting, and diarrhea Print Language Print Language: Belarusian Discharge ED Provider: Cj Hale General Chief Complaint: Chest Pain Stated Complaint: back, chest, shoulder pain, vomiting Time Seen by Provider: 11/21/24 01:56 Mode of Arrival: Ambulatory Source of Information: Patient Description of Symptoms (Recalled from ER Triage Doc. by RN): pt to the ED with sudden onset of nausea around 1am accompanied by diarrhea and SOB. pt also reports a sharp pain that radiates from behind her lef shoulder blade to her anterior chest. History of Present Illness HPI narrative: 44-year-old female with history of anxiety and previous blood clots presents to the ER with 1 hour of nausea, vomiting, followed by chest pain. Patient reports she woke up approximately 1 hour prior to arrival with nausea, she had nonbloody, nonbilious emesis. She attempted to take Zofran but promptly vomited this up as well. She stated she started feeling anxious and after the vomiting started developing pain by her left shoulder blade. She describes it as sharp, she does not experience any chest pressure or shortness of breath. She has no new swelling in the feet or legs. She has had 2 episodes of nonbloody, nonmelanotic diarrhea. She has no fevers or chills. No numbness, tingling, or weakness. Patient admits she is anxious and on the verge of a panic attack. She states she took her BuSpar when she woke up but also had emesis of this. She denies any abdominal pain. She states the pain in her shoulder blade started after vomiting. No dizziness or headache. No other associated symptoms. Related Data Home Medications ?Medication ?Instructions ?Recorded ?Confirmed vit no.95-ferrous 1 each PO DAILY Supplement 02/22/21 02/22/21 fumarate 28 mg-folic acid 800 mcg tablet Previous Rx's ?Medication ?Instructions ?Recorded citalopram 10 mg tablet 10 mg PO DAILY 02/22/21 pantoprazole 40 mg tablet,delayed 40 mg PO HS 4 weeks #28 tabs 06/26/23 release (Protonix) ondansetron 4 mg disintegrating 4 mg PO Q6H PRN nausea and 11/21/24 tablet vomiting #10 tabs Allergies Allergy/AdvReac Type Severity Reaction Status Date / Time No Known Allergies Allergy Unverified 02/27/17 15:36 [facility] Disclaimer: The information contained in this section may have been updated after the patient was seen, as this information can be updated by other users. Social History Smoking Status: Current every day smoker alcohol intake: never substance use type: denies use current occupational status: unemployed Travel in the last 8 weeks?: None Other Medical History Have you received the Flu Vaccine for this season: No Have you received the Pneumonia Vaccine: No ROS Obtained: Yes Systems reviewed as appropriate & no additional complaints except as documented Per HPI Physical Exam General General appearance: alert, in no apparent distress and anxious Comment: Nontoxic-appearing Head Head exam: atraumatic and normocephalic Eye Eye exam: Present PERRL and EOMI ENT ENT exam: Present mucous membranes moist Neck Neck exam: Present normal inspection and full ROM Chest Chest inspection: Present symmetric chest wall rise; Absent tenderness Respiratory Respiratory exam: Present normal lung sounds bilaterally; Absent respiratory distress, wheezes or stridor Cardiovascular Cardiovascular exam: Present regular rate (Rate in the low 90s during exam) and normal rhythm Abdominal Exam Abdominal exam: Present soft; Absent distention, tenderness, guarding or rebound Extremities Exam Extremities exam: Present full ROM; Absent edema Neurological Exam Neurological exam: Present alert and oriented X3; Absent motor sensory deficit Psychiatric Psychiatric exam: Present anxious Skin Skin exam: Present warm and dry HEART Score HEART Score HEART Score assessment performed?: Yes History (anamnesis): Slightly suspicious ECG: Non-specific disturbance Age: <45 years Risk factors: 1-2 risk factors Troponin: </= normal limit HEART Score: 2 Critical Care Critical Care Time Critical Care Time: No Medical Decision Making Medical Records Medical records reviewed: Yes I reviewed the patient's medical records. MR Comment: Review of records demonstrates patient had tiny subsegmental PE in the right lower lobe and February 2021. [place] Inquiry Pt receiving controlled substance: No Vital Signs Vital Signs: 11/21/24 01:52 11/21/24 02:00 11/21/24 02:40 Temperature 98.1 F Temperature Source Oral Pulse Rate 99 H 83 Pulse Rate [Left Radial] 106 H Respiratory Rate 18 Blood Pressure 144/90 H 151/81 H Blood Pressure [Right Arm] 140/80 Blood Pressure Mean [Right Arm] 100 Blood Pressure Source [Right Arm] Automatic Cuff Blood Pressure Position [Right Arm] Sitting 02 Sat by Pulse Oximetry 98 96 98 Oxygen Delivery Method Room Air 11/21/24 03:01 11/21/24 03:31 11/21/24 04:00 Temperature Temperature Source Pulse Rate 83 67 64 Pulse Rate [Left Radial] Respiratory Rate 15 15 15 Blood Pressure 127/86 111/73 113/77 Blood Pressure [Right Arm] Blood Pressure Mean [Right Arm] Blood Pressure Source [Right Arm] Blood Pressure Position [Right Arm] 02 Sat by Pulse Oximetry 96 95 98 Oxygen Delivery Method Room Air 11/21/24 04:30 11/21/24 05:00 Temperature Temperature Source Pulse Rate 63 61 Pulse Rate [Left Radial] Respiratory Rate 16 15 Blood Pressure 99/68 L 112/69 Blood Pressure [Right Arm] Blood Pressure Mean [Right Arm] Blood Pressure Source [Right Arm] Blood Pressure Position [Right Arm] 02 Sat by Pulse Oximetry 95 98 Oxygen Delivery Method Room Air Room Air Lab Data Labs: Lab Results 11/21/24 01:58: WBC 9.2, RBC 4.18 L, Hgb 13.1, Hct 37.6, MCV 90.0, MCH 31.3 H, MCHC 34.8, RDW 12.8, Plt Count 253, MPV 9.1, Neut % (Auto) 64.3, Lymph % (Auto) 24.8, [place] % (Auto) 8.5, Eos % (Auto) 1.5, Baso % (Auto) 0.7, Neut # (Auto) 5.9, Lymph # (Auto) 2.3, [place] # (Auto) 0.8, Eos # (Auto) 0.1, Baso # (Auto) 0.1, PT 11.1, INR 1.00, D-Dimer 0.67 H, Sodium 142, Potassium 3.6, Chloride 109 H, Carbon Dioxide 26, Anion Gap 10.6, BUN 12, Creatinine 0.70, Estimated Creat Clear 135, Estimated GFR 92, Est GFR ( Amer) 111, Glucose 104 H, Calcium 9.1, Total Bilirubin 0.5, AST 24, ALT 19, Alkaline Phosphatase 80, Troponin I < 0.01, NT-Pro-B Natriuret Pep 69.8, Total Protein 7.5, Albumin 4.5, Globulin 3.0, Albumin/Globulin Ratio 1.5, Lipase 136, Serum HCG, Qual Negative, HCV Ab [place] w/Rflx PCR Qn Negative, HIV Ag/Ab Combo Qual Negative 11/21/24 04:44: Troponin I < 0.01 11/21/24 01:58 11/21/24 01:58 Response Orders (Tests/Meds): ED MEDICATIONS Generic Name Dose Route Start Last Admin Trade Name Freq PRN Reason Stop Dose Admin Nitroglycerin 0.4 mg 11/21/24 01:59 Nitroglycerin 0.4mg Sl Tablet SL 11/22/24 02:00 Q5MINP PRN Chest Pain Discontinued Medications Generic Name Dose Route Start Last Admin Trade Name Freq PRN Reason Stop Dose Admin Aspirin 324 mg 11/21/24 01:59 11/21/24 02:18 Aspirin 81mg Chewable Tablet PO 11/21/24 02:00 324 mg ONCE ONE Administration Belladonna Alkaloids 60 ml 11/21/24 03:30 11/21/24 03:40 Belladonna Alkaloids 60 Ml Ml PO 11/21/24 03:31 60 ml ONCE ONE Administration Lactated Ringer's 1,000 mls @ 999 mls/hr 11/21/24 02:23 11/21/24 05:17 Lactated Ringer's 1000 Ml Bag IV 11/21/24 03:23 Infused .Q1H1M ONE Infusion Iopamidol 80 ml 11/21/24 02:57 11/21/24 02:58 Iopamidol-370 (76%);100ml Bottle IV 11/21/24 02:58 80 ml ONCE ONE Administration Morphine Sulfate 4 mg 11/21/24 01:59 11/21/24 02:18 Morphine 4mg/Ml Syringe IV 11/21/24 02:00 4 mg ONCE ONE Administration Ondansetron HCl 4 mg 11/21/24 01:59 11/21/24 02:18 Ondansetron 4mg/2ml Vial IV 11/21/24 02:00 4 mg ONCE ONE Administration Sodium Chloride 50 ml 11/21/24 02:57 11/21/24 02:58 0.9 % Sodium Chloride 50 Ml Vial IV 11/21/24 02:58 50 ml ONCE ONE Administration Sodium Chloride 10 ml 11/21/24 02:57 11/21/24 02:58 Sodium Chloride 0.9% 10ml Syr (Rad Only) IV 11/21/24 02:58 10 ml ONCE ONE Administration ORDERS Category Date Time Status CT angio chest PE protocol Stat Cat Scan 11/21/24 02:37 Completed XR chest 2V Stat Exams 11/21/24 02:00 Completed Complete Blood Count Auto Diff Stat Lab 11/21/24 01:58 Completed Comprehensive Metabolic Panel Stat Lab 11/21/24 01:58 Completed D-Dimer Stat Lab 11/21/24 01:58 Completed HCG Qualitative, Serum Stat Lab 11/21/24 01:58 Completed HIV Combo Stat Lab 11/21/24 01:58 Completed Hepatitis C Ab Qual. W/ RFX Stat Lab 11/21/24 01:58 Completed Lipase Stat Lab 11/21/24 01:58 Completed NT Pro Brain Natriuretic Pep. Stat Lab 11/21/24 01:58 Completed Prothrombin Time INR Stat Lab 11/21/24 01:58 Completed Troponin I Q3H Lab 11/21/24 04:44 Completed Troponin I Q3H Lab 11/21/24 08:00 Ordered Troponin I Stat Lab 11/21/24 01:58 Completed MDM Narrative Medical Decision Narrative: In summary, this 44-year-old female with comorbidities described in the HPI presents to the emergency department today with nausea, vomiting, left shoulder blade pain, anxiety. On initial evaluation patient is hemodynamically stable, afebrile, no chest tenderness, no CVA tenderness, no abdominal tenderness or other abnormalities on exam. No peripheral edema or calf pain or swelling. Patient is anxious but redirectable and able to be calmed verbally. Differential diagnosis includes but is not limited to ACS, PE, viral syndrome, pneumothorax, pneumonia, anxiety, panic attack, electrolyte abnormality, esophageal spasm, patient has a history of reflux which could also be flaring up. Based on these concerns, I ordered hematologic and serum labs, cardiac workup, D-dimer, chest x-ray. ECG personally interpreted demonstrates sinus tachycardia, rate 108, normal axis, normal IL and QTc, patient has ST depressions in V2 through V5 without reciprocal changes, no ST elevation, no STEMI. Review of previous records demonstrates ECG similar appearing in April 2023. Patient received aspirin, morphine, Zofran, IV fluids for treatment. Labs personally reviewed demonstrate no leukocytosis or anemia, platelets normal, PT/INR normal, CMP nonactionable, hCG negative, D-dimer mildly elevated at 0.67, given patient's history of clots we will pursue CTA PE to evaluate for pulmonary embolism, initial troponin undetectably low less than 0.01. XR personally interpreted demonstrates no acute intrathoracic abnormality See radiology read for final interpretation. CT imaging personally interpreted demonstrate no large segmental or subsegmental PE, see radiology read for final interpretation. Radiology read comments on possible prior granulomatous disease but no acute thoracic abnormality. Patient was placed in the ED observation at 0257 for continued symptomatic monitoring, cardiac monitoring, and serial troponins to rule out evolving ME and preclude unnecessary admission. Patient remained on the technical spec and was frequently reassessed. Her symptoms are resolved at this time and she is resting comfortably. Tolerating oral intake. She is appropriate for discharge at this time. Zofran prescribed for symptomatic management. Patient was given instructions on symptomatic management, follow up instructions, and return precautions for the emergency department. Patient indicated understanding and was discharged in stable condition. Total time in ED observation: 3 hours 3 minutes
[2024-11-21 02:17] LABS: Alanine Aminotransferase 19 U/L (12-78); Albumin/Globulin Ratio 1.5 (1.1-1.8); Alkaline Phosphatase 80 U/L (38-126); Anion Gap 10.6 mEq/L (5-15); Aspartate Amino Transferase 24 U/L (14-36); Bilirubin,Total 0.5 mg/dl (0.2-1.3); Blood Urea Nitrogen 12 mg/dl (7-17); Calcium 9.1 mg/dl (8.4-10.2); Carbon Dioxide 26 mmol/L (22.0-30.0); Creatinine Clearance Estimated 135 mL/min (50-200); Creatinine,Serum 0.70 mg/dl (0.52-1.04); Estimated Glomerular Filt Rate 92 ml/min (>60); GFR (African American) 111 ML/MIN (>60); Globulin 3.0 g/dL (1.3-3.2); Glucose 104 mg/dl (74-100); Total Protein,Serum 7.5 g/dl (6.3-8.2)
[2024-11-21 02:18] LABS: INR 1.00 (0.9-1.1); Prothrombin Time 11.1 seconds (10.1-12.5)
[2024-11-21] MEDS: ASPIRIN 81MG CHEWABLE TABLET 324 MG PO (02:18)
[2024-11-21] MEDS: ONDANSETRON 4MG/2ML VIAL 4 MG IV (02:18)
[2024-11-21] MEDS: MORPHINE 4MG/ML SYRINGE 4 MG IV (02:18)
--- OUTSIDE RECORDS SUMMARY | 2024-11-21 02:19 | XMS_ITS | Clinical Summary ---
Author Organization Healthcare Address [address] [place] [address] Care Team Prov[address] Care Court Magistrate Name Role Phone Ankit Basilio MD Primary Care Provider [phone] Allergies No known active allergies Medications levothyroxine [...] Recorded Patient Health Questionnaire-2 Score 0 01/26/2023 [place] Depression Scale Answer Date Recorded [place] Depression Scale Total 4 03/17/2021 The thought [...] Health Maintenance Due Date Last Done Comments [facility]-/Child/Adol SDOH Screenings 1982 [facility]-Varicella Vaccines (1 of 2 - 13+ 2-dose series) 06/25/1995 [facility]- SDOH Screenings 2000 [facility]-Adult SDOH Screenings 2000 [facility]-Hepatitis B Vaccines (1 of 3 - 19+ 3-dose series) 2001 [facility]-Pap Smear 06/25/2003 HPV Vaccines (1 - 3-dose SCD M series) 2009 [facility]-Cervical Cancer Screening 2012 [facility]-HPV/Cotest 2012 [facility]-Depression Screening 01/27/2024 023, 03/17/2021 [facility]-TRSGC-44 Vaccine (3 - season) 2024 11/24/2020, 11/03/2020 [facility]-Influenza Vaccine (#1) 11/10/202412/01, 12/04/2016, 01/04/2016 [facility]-DTaP,Tdap,and Td Vaccine s (2 [...] ORDERABLES Final Resu lt Performing Organization Address [facility] de Phone Number SUNQUEST * Hepatitis C Antibody (06/30/2020 10:46 AM EDT) Hepatitis C Antibody NEGATIVE Reference Range: Negative SUNQUEST 06/30/2020 10:4 6 AM EDT 06/30/2020 12:56 PM EDT us Umer Arellano MD LAB BLOOD ORDERABLES Final Resu lt Performing Organization Address [facility] Co de Phone Number SUNQUEST from Last 3 Months or Most Recently Relevant to Health Maintenance Insurance [employer] [facility] MEDICAID Care Teams Court Magistrate Relationship Specialty Start Date End Date Ankit Basilio MD [address] [place] [address] PCP - General 07/23/20
--- OUTSIDE RECORDS SUMMARY | 2024-11-21 02:19 | XMS_ITS | Patient Health Record ---
Author Organization [facility] Address [address] [place] [address] Care Team Providers Care Launch Leader Name Role Phone Mariia Arias Unavailable [phone] Reason For Referral No Information Social History Social History Sexual History: Social Info Question Answer Notes Sexual History Had sex in the past 12 months (vaginal, oral, or anal)? Yes Drugs/Alcohol: Social Info Question Answer Notes Drugs Have you used drugs other than those for medical reasons in the past 12 months? No Alcohol Screen Did you have a drink containing alcohol in the past year? Yes Points 0 Interpretation Negative Tobacco Use: Social Info Question Answer Notes Tobacco Use/Smoking Are you a former smoker Tobacco use other than smoking: Are you an other tobac co user? No Problems Problem Type SNOMED Code ICD Code Onset Dates Problem Status W/U Status Risk Notes Problem Post-term of 40 to 42 weeks (3566400728752 1) *Post-term , over 40 weeks to 42 weeks of gestation (Code also weeks of gestation) (O48.0) 04/21/19 12 Active confirmed POST TERM Problem state, 2 weeks (59904256) 2 weeks follow-up (Z39.2) 04/21/19 12 Active confirmed EXAMINATION Problem Requires vaccination (848847792) Arbovirus enceph vaccin (Z23) 11/12/19 11 Active confirmed FLU VACCINE Problem Aching headache (900897211) Aching headache (R51) 03/30/19 12 Active confirmed HEADACHE Problem Patient currently (14134875) 9-13 weeks gestation of (Z33.1) 01/26/20 11 Active confirmed , NORMAL Problem Cyst of ovary (18389069) Unspecified ovarian cysts (N83.20) 07/30/19 11 Active confirmed OVARIAN CYST Problem Adult health examination (818297086) Adult general medical exam (Z00.00) 07/30/19 11 Active confirmed ANNUAL EXAM Plan Of Treatment No Information Medical (General) History Medical History History ICD Code SOCIAL HX: denies SOCIAL HX: denies none noted CHILDRENS MULTIVITAMIN TABLET CHEWABLE IMITREX 50 MG ORAL TABLET LOESTRIN 03/31 () 1-20 MG-MCG ORAL TABL ET Surgical History Surgery Date(Month/Year) none noted
--- OUTSIDE RECORDS SUMMARY | 2024-11-21 02:19 | XMS_ITS | Clinical Summary ---
Author Organization [facility] Address [address] [place] [address] Care Team Providers Care Antique Refinisher Name Role Phone Rebecca Felix APRN Primary Care Provider [phone] [phone] Allergies No known active allergies Medications busPIRone (BUSPAR) 10 MG tablet Take 1 tablet by mouth Every 12 (Twelve) Hours. 4 Active atorvastatin (LIPITOR) 20 MG tablet Take 1 tablet by mouth Daily. 4 Active sertraline (ZOLOFT) 25 MG tablet Take 1 tablet by mouth Daily. 4 Active pantoprazole (PROTONIX) 40 MG EC tablet 4 Active aspirin 81 MG EC tablet Take 1 tablet by mouth Daily. Active ondansetron (Zofran) 4 MG tablet Take 1 tablet by mouth Every 6 (Six) Hours As Needed for Nausea or Vomiting. 30 tablet 10/18/2023 11:28 AM EDT 4 Active clindamycin (CLEOCIN) 300 MG capsule Take 1 capsule by mouth Every 12 (Twelve) Hours. 4 Active vitamin D (ERGOCALCIFEROL) 1.25 MG (65480 UT) capsule capsule Take 1 capsule by mouth 1 (One) Time Per Week. 20 capsule 1 4 Active traMADol (ULTRAM) 50 MG tabletIndications :Left trimalleolar fracture, closed, initial encounter Take 1 tablet by mouth Every 6 (Six) Hours As Needed for Moderate Pain. 30 tablet 4 Active Active Problems Problem Noted Date Diagnosed Date Leukocytosis, likely reactive 10/17/2023 Acute postoperative pain 10/17/2023 Left trimalleolar fracture 10/16/2023 HTN (hypertension) 10/16/2023 GERD without esophagitis 10/16/2023 S/P ORIF (open reduction int ernal fixation) of Pilon fracture with fixation of the weightbearing surface, ORIF of the fibula, fixation of syndesmotic disruption 10/16/2023 Overview (10/16/2023): Open reduction internal fixation of pilon fracture with fixation of the weightbearing surface, ORIF of the fibula, fixation of syndesmotic disruption Closed displaced trimalleola r fracture of right ankle, initial encounter 10/09/2023 Left trimalleolar fracture, closed, initial enco unter 10/09/2023 Social History Tobacco Use Types Packs/Day Years Used Date Smoking Tobacco: Former Cigarettes Smokeless Tobacco: Never Tobacco Cessation:Counseling Given: Not Answered Comments:Smoked for about 10 years, about .75 ppd Alcohol Use Standard Drinks/Week Comments Yes 0 (1 standard drink = 0.6 oz pur e alcohol) weekends AUDIT-C Answer Date Recorded Q1: How often do you have a drink containing alc ohol? Monthly or less 10/16/2023 Q2: How many drinks containi ng alcohol do you have on a typical day when you are drinking? 1 or 2 10/16/2023 Q3: How often do you have si x or more drinks on one occasion? Never 10/16/2023 Abuse Screen Answer Date Recorded Feels Unsafe at Home or Work/School no 10/16/2023 Feels Threatened by Someone no 08/2023 Does Anyone Try to Keep You From Having Contact with Others or Doing Things Outside Your Home? no 10/16/2023 Physical Signs of Abuse Present no 10/16/2023 Housing Stability Answer Date Recorded Current Living Arrangements home 08/2023 Potentially Unsafe Housing Conditions Not on promise e 10/16/2023 Disabilities Answer Date Recorded Difficulty Concentrating, Remembering or Making Decisions no 10/16/2023 Difficulty Managing Errands Independently yes 10/16/2023 Education Answer Date Recorded Help with school or training? Not on file Preferred Language Hungarian 10/12/2023 Comments No Sex and Gender Information Value Date Recorded Sex Assigned at Not on file Legal Sex Female 1:15 PM EDT Gender Identity Not on file Sexual Orientation Not on file Last Filed Vital Signs Vital Sign Reading Time Taken Comments Blood Pressure 110/77 10/18/2023 11:39 AM EDT Pulse 97 10/18/2023 11:39 AM EDT Temperature 36.4 C (97.5 F) 10/31/2023 11:29 AM EDT Respiratory Rate 16 10/18/2023 11:3 9 AM EDT Oxygen Saturation 96% 10/18/2023 11: 39 AM EDT Inhaled Oxygen Concentration - - Weight 77.1 kg (169 lb 15.6 oz) 02/22/2024 8:53 AM EST Height 162.6 cm (5' 4.02 ) 02/22/2024 8:53 AM ES T Body Mass Index 29.16 02/22/2024 8:53 AM EST Plan of Treatment Health Maintenance Due Date Last Done Comments Annual Gynecologic Pelvic an d Breast Exam 1982 MAMMOGRAM 2022 ANNUAL PHYSICAL 10/09/2023 COVID-19 Vaccine (3 - 2024-2 6 season) 2024 11/24/2020, 11/03/2020 INFLUENZA VACCINE 12/10/2024 12/01/2020, 12/04/2016, 01/04/2016 TDAP/TD VACCINES (2 - Td or Tdap) 12/01/2030 12/01/2020 HEPATITIS C SCREENING Completed 06/30/2020 Pneumococcal Vaccine 0-49 Aged Out No longer eligible based on patient's age to complete this topic Medical Devices Implanted Type Area Dog And Cat Food Cook Device Identifier Shelf Expiration Date Model / Serial / Lot Scrw Plt R3con Nl 3.5x30mm - [id number] Implanted:Qty: 1 on 10/16/2023 by Edith Lyons MD at [facility] Implant Left: Ankle PARAGON 28 [id number] / / N/A Scrw Plt R3con Lk 3.5x24mm - [id number] Implanted:Qty: 1 on 10/16/2023 by Edith Lyons MD at [facility] Implant Left: Ankle PARAGON 28 [id number] / / N/A Plt Fib Post Anti/Glid Farzana W/Comp 9hl Univ - [id number] Implanted:Qty: 1 on 10/16/2023 by Edith Lyons MD at [facility] Implant Left: Ankle PARAGON 28 [id number] / / N/A Scrw Plt R3con Nl 3.5x18mm - [id number] Implanted:Qty: 1 on 10/16/2023 by Edith Lyons MD at [facility] Implant Left: Ankle PARAGON 28 [id number] / / N/A Scrw Plt R3con Nl 3.5x12mm - [id number] Implanted:Qty: 1 on 10/16/2023 by Edith Lyons MD at [facility] Implant Left: Ankle PARAGON 28 [id number] / / N/A Scrw Plt Peqxntdx5kwf Nl 3.5x46mm - [id number] Implanted:Qty: 1 on 10/16/2023 by Edith Lyons MD at [facility] Implant Left: Ankle PARAGON 28 [id number] / / N/A Plt Medl Farzana Malleolus 7h - [id number] Implanted:Qty: 1 on 10/16/2023 by Edith Lyons MD at [facility] Implant Left: Ankle PARAGON 28 [id number] / / Scrw Plt R3con Lk 3.5x20mm - [id number] Implanted:Qty: 1 on 10/16/2023 by Edith Lyons MD at [facility] Implant Left: Ankle PARAGON 28 [id number] / / Scrw Plt R3con Nl 3.5x20mm - [id number] Implanted:Qty: 1 on 10/16/2023 by Edith Lyons MD at [facility] Implant Left: Ankle PARAGON 28 [id number] / / Scrw Plt R3con Nl 3.5x26mm - [id number] Implanted:Qty: 1 on 10/16/2023 by Edith Lyons MD at [facility] Implant Left: Ankle PARAGON 28 [id number] / / Scrw Plt R3con Lk 3.5x12mm - [id number] Implanted:Qty: 1 on 10/16/2023 by Edith Lyons MD at [facility] Implant Left: Ankle PARAGON 28 [id number] / / Scrw Plt R3con Lk 3.5x16mm - [id number] Implanted:Qty: 1 on 10/16/2023 by Edith Lyons MD at [facility] Implant Left: Ankle PARAGON 28 [id number] / / Scrw Jamal S/Tap Strdrv 2x30mm - [id number] Implanted:Qty: 1 on 10/16/2023 by Edith Lyons MD at [facility] Implant Left: Ankle DEPUY SYNTHES [id number] / / N/A Scrw Plt R3con Nl 3.5x14mm - [id number] Implanted:Qty: 4 on 10/16/2023 by Edith Lyons MD at [facility] Implant Left: Ankle PARAGON 28 [id number] / / Scrw Macarena Mini Monster Lng Thrd 4x28mm - [id number] Implanted:Qty: 1 on 10/16/2023 by Edith Lyons MD at [facility] Implant Left: Ankle PARAGON 28 [id number] / / N/A Plt Dist Tib Post/Lat 7hl Lt - [id number] Implanted:Qty: 1 on 10/16/2023 by Edith Lyons MD at [facility] Implant Left: Ankle PARAGON 28 [id number] / / N/A Scrw Plt R3con Nl 3.5x40mm - [id number] Implanted:Qty: 2 on 10/16/2023 by Edith Lyons MD at [facility] Implant Left: Ankle PARAGON 28 [id number] / / N/A Scrw Macarena Mini Monster Lng Thrd 4x36mm - [id number] Implanted:Qty: 1 on 10/16/2023 by Edith Lyons MD at [facility] Implant Left: Ankle PARAGON 28 [id number] / / N/A Scrw Plt R3con Lk 3.5x38mm - [id number] Implanted:Qty: 1 on 10/16/2023 by Edith Lyons MD at [facility] Implant Left: Ankle PARAGON 28 [id number] / / N/A Explanted Type Area Dog And Cat Food Cook Device Identifier Shelf Expiration Date Model / Serial / Lot Kwire Smoth Sgl/Troc [id number] Ns - [id number] Explanted:Qty: 3 on 10/16/2023 at [facility] Implant Left: Ankle PARAGON 28 [id number] / / Scrw Macarena Mini Monster Lng Thrd 4x34mm - [id number] Explanted:Qty: 1 on 10/16/2023 at [facility] Implant Left: Ankle PARAGON 28 [id number] / / Scrw Compr Macarena Nohead Sht/Thrd Ti [id number] - [id number] Explanted:Qty: 2 on 10/16/2023 at [facility] Implant Left: Ankle DEPUY SYNTHES [id number] / / Scrw Macarena Mini Monster Lng Thrd 4x42mm - [id number] Explanted:Qty: 1 on 10/16/2023 at [facility] Implant Left: Ankle PARAGON 28 [id number] / / N/A Wr Starford Smoth 1.4mm - [id number] Explanted:Qty: 1 on 10/16/2023 at [facility] Implant Left: Ankle PARAGON 28 [id number] / / N/A Insurance [employer] Advance Directives * CPR (Attempt to Resuscitate) (Latest Code Status on File) Date Activated Date Inactivated Comments 10/17/2023 11:57 AM 10/18/2023 3:13 PM Question Answer Comments Code Status (Patient has no pulse and is not breathing): CPR (Attempt to Resuscitate) Medical Interventions (Patie nt has pulse or is breathing): Full Support Level Of Support Discussed With: Patient Care Teams Antique Refinisher Relationship Specialty Start Date End Date Rebecca Felix APRN [address] [place] [address] PCP - General Nurse Practitioner 10/08/23
--- OUTSIDE RECORDS SUMMARY | 2024-11-21 02:19 | XMS_ITS | Clinical Summary ---
Author Organization [facility] [place] [address] Care Team Providers Care Documentation Billing Clerk Name Role Phone Unavailable Primary Care Provider [...] series) 2001 COVID-19 Vaccine (2023-2 5 season) 2024 Influenza Vaccine (#1) 2024 Meningococcal B Vaccine Aged Out No l onger eligible based on patient's age to complete this topic Pneumococcal Vaccine 0-49 Aged Out No longer eligible based on patient's age to complete this topic
--- OUTSIDE RECORDS SUMMARY | 2024-11-21 02:19 | XMS_ITS | Encounter Summary ---
Author Organization [facility] Address [address] [place] [address] Care Team Providers Care Access Assoc Name Role Phone Rebecca Felix APRN Primary Care Provider [phone] Reason for Visit * Reason Onset Date Comments Med Refill 12/25/2023 Encounter Details Date Type Department Care Team (Late st Contact Info) Description 12/25/2023 Refill [facility] [address] [place] [address] Edith Lyons MD [address] [place] [address] Left trimalleolar fracture, closed, initial encounter; Acute post-operative pain Social History Tobacco Use Types Packs/Day Years Used Date Smoking Tobacco: Former Cigarettes Smokeless Tobacco: Never Comments:Smoked for about 10 years, about .75 [...] or training? Not on file Preferred Language Kyrgyz 10/12/2023 Comments No Sex and Gender Information Value Date Recorded Sex Assigned at Not on file Legal Sex Female 1:15 PM EDT Gender Identity Not on file Sexual Orientation Not on file documented as of this encounter Miscellaneous Notes * Telephone Encounter - Sweta Carrasco R.T.(Mere) - 12/26/2023 7:30 AM EDT Please advise. Thanks. Sol documented in this encounter Plan of Treatment Not on file documented as of this encounter Visit Diagnoses Diagnosis Left trimalleolar fracture, closed, initial encounter Acute post-operative pain documented in this encounter Care Teams Access Assoc Relationship Specialty Start Date End Date Rebecca Felix APRN [address] [place] [id number] PCP - General Nurse Practitioner 10/08/23 documented as of this encounter
[2024-11-21 02:22] LABS: HCG Qualitative, Serum Negative (Negative)
--- NOTE | 2024-11-21 02:24 | PC.NURSE ---
pt stated the morphine was making her more nauseous and stated she didnt want to continue with the administration. pt got approx 2mg. the rest was wasted with ESTHER Jones
[2024-11-21 02:28] LABS: D-Dimer 0.67 ug/mL (0.0-0.5)
[2024-11-21 02:35] LABS: NT Pro Brain Natriuretic Pep. 69.8 pg/mL (0-125)
[2024-11-21] MEDS: LACTATED RINGERS 1000ML 1,000 ML 999 ML IV (02:35)
--- NOTE | 2024-11-21 02:37 | CT_ITS ---
PROCEDURE INFORMATION: Exam: CTA Chest With Contrast Exam date and time: 11/21/2024 2:51 AM Age: 44 years old Clinical indication: Pain; Chest pressure; Additional info: L shoulder pain, dimer+, HX clot 2020 TECHNIQUE: Imaging protocol: Computed tomographic angiography of the chest with contrast. Exam focused on the arteries. 3D rendering (Not supervised by radiologist): MIP and/or 3D reconstructed images were created by the technologist. Radiation optimization: All CT scans at this facility use at least one of these dose optimization techniques: automated exposure control; mA and/or kV adjustment per patient size (includes targeted exams where dose is matched to clinical indication); or iterative reconstruction. Contrast material: ISOVUE; Contrast volume: 80 ml; Contrast route: INTRAVENOUS (IV); COMPARISON: CT ANGIO CHEST PE PROTOCOL 06/26/2023 9:30 PM FINDINGS: Pulmonary arteries: Normal. No pulmonary emboli. Aorta: Unremarkable. No aortic aneurysm. No aortic dissection. Lungs: 10 mm granuloma in the subpleural location in the right chest. Pleural spaces: Unremarkable. No pneumothorax. No pleural effusion. Heart: Unremarkable. No cardiomegaly. No pericardial effusion. Coronary arteries: No coronary calcium. Lymph nodes: Densely calcified subcarinal and hilar lymph nodes. Bones/joints: Unremarkable. No acute fracture. Soft tissues: Unremarkable. IMPRESSION: 1. No evidence of pulmonary embolus or other acute process. 2. Right-sided pulmonary granuloma and calcified mediastinal and hilar lymph nodes consistent with prior granulomatous disease.
[2024-11-21 02:47] LABS: Troponin I < 0.01 ng/ml (0.00-0.034)
[2024-11-21] MEDS: SODIUM CHLORIDE 0.9% 10ML SYR (RAD ONLY) 10 ML IV (02:58)
[2024-11-21] MEDS: 0.9 % SODIUM CHLORIDE 50 ML VIAL IV (02:58)
[2024-11-21] MEDS: IOPAMIDOL-370 (76%);100ML BOTTLE 80 ML IV (02:58)
[2024-11-21 03:13] LABS: Lipase 136 U/L (23-300)
--- NOTE | 2024-11-21 03:16 | PC.NURSE ---
rounded on pt at this time. provided pt with warm blanket. pt reports feeling decrease in nausea since morphine administration. pt denies any needs at this time
[2024-11-21] MEDS: BELLADONNA ALKALOIDS 60 ML ML PO (03:40)
--- NOTE | 2024-11-21 03:56 | PC.NURSE ---
rounded on pt at this time. she was able to drink most of her GI cocktail but wasnt able to complete it all due to the taste. pt denies any complaints at this time and was updated on the plan of care
[2024-11-21 04:27] LABS: Hepatitis C Ab Qual. W/ RFX NEGATIVE (Negative)
--- NOTE | 2024-11-21 05:42 | PC.NURSE ---
Called lab @approx 0530 regarding results on . states 10 mins left
[2024-11-21 05:51] LABS: Troponin I < 0.01 ng/ml (0.00-0.034)
== END 2024-11-21 06:07 | disposition home or self-care (01) ==
PROVIDERS: Emergency Provider Emergency Medicine
DX: R07.9 Chest pain, unspecified (principal); R11.2 Nausea with vomiting, unspecified; F17.210 Nicotine dependence, cigarettes, uncomplicated
CPT/HCPCS: 71046; 71275; 80053; 83690; 83880; 84484; 84703; 85025; 85378; 85610; 86803; 87389; 93005; 96361; 96374; 96375; 99285; J2270; J2405; J7120; Q9967